=== PATIENT | male | born 1955 | race Caucasian/White ===

== ENCOUNTER 2017-10-24 08:15 | Day surgery (SDC) | payer MEDICARE, MEDICAID ==
[~2017-10-24 08:15] MED LIST: Lidocaine 0.5% 50 ML SDV ONE; Midazolam 1 MG/ML 2 ML SDV ONE; Propofol 200 MG/20 ML SDV ONE; fentaNYL 100 MCG/2 ML SDV ONE
[2017-10-24] MEDS ORDERED: Dexamethasone 4 MG/ML 5 ML MDV ONE (08:44)
[2017-10-24] MEDS ORDERED: Bupivacaine 0.5% 30 ML SDV ONE (08:44)
[2017-10-24] MEDS ORDERED: Povidone-Iodine 10% Soln 118.25 ML Bottle ONE (08:45)
[2017-10-24] MEDS ORDERED: Lactated Ringers 1,000 ML IV SCH (09:00)
[2017-10-24] MEDS ORDERED: Albuterol/Ipratropium 3.0-0.5 MG/3 ML Neb Soln NEB ONE (09:45)
[2017-10-24] MEDS ORDERED: ceFAZolin 2 GM in Premix Bag 1 BAG IV ONE (10:00)
--- NOTE | 2017-10-24 10:17 | CR ---
CHEST: 2 view CLINICAL HISTORY:COPD COMPARISON:None FINDINGS: The lungs are hyperaerated. Heart and pulmonary vascularity appear normal. There is mild g eneralized interstitial prominence. There is prominence of the perihilar bronchial markings.. There is some patchy density in the lingula which is likely a combination of some fibrosis and atelec tasis. There is moderate apical scarring bilaterally. IMPRESSION: Changes of COPD Patchy lingular density likely is accommodation some fibrosis and atelectasis
[2017-10-24] MEDS ORDERED: Triamcinolone Acetonide 40 MG/ML 1 ML MDV ONE (10:30)
[2017-10-24] MEDS ORDERED: fentaNYL 100 MCG/2 ML SDV IVPUSH ONE (11:14)
--- NOTE | 2017-10-24 17:52 | OR ---
DATE OF PROCEDURE: 10/24/2017 PREOPERATIVE DIAGNOSES: Right carpal tunnel syndrome and left lateral epicondylitis. POSTOPERATIVE DIAGNOSES: Right carpal tunnel syndrome and left lateral epicondylitis. PROCEDURE: Right carpal tunnel release and left lateral epicondyle injection. HAND SALTER: JENNIFER Mcgill. Physician medical laboratory assistant, Brittanie Cochran NP, played an essential role in assisting in this case, helping to position the patient, retract structures as needed, as well as suturing and cutting sutures as indicated. Her presence improved patient's safety and decreased operative time. ANESTHESIA: [place] block plus conscious sedation. FLUIDS: Lactated Ringer's solution. ESTIMATED BLOOD LOSS: Less than 10 mL. COMPLICATIONS: None. SPECIMEN: None. DISCHARGE DISPOSITION: Stable to PACU. HSITORY AND INDICATIONS FOR THE PROCEDURE: The patient was seen preoperatively in the clinic. He had been having numbness and tingling in his right hand. He had positive Tinel on compression. Risks and benefits of the procedure were explained to the patient. Informed consent was obtained. He was also suffering from lateral epicondylitis with point tenderness over the lateral epicondyle and pain with resisted elbow extension and wrist extension. DETAILS OF THE PROCEDURE: The patient was seen preoperatively by myself and the Anesthesia staff at the preop holding area where the operative site was marked. He was brought to the operative suite by the Anesthesia staff where right Emily block was administered. The patient was then prepped and draped in a sterile manner. Time-out was called identifying the correct patient, the correct procedure, the correct site, and antibiotics had begun within appropriate time. An incision was made just proximal to Key's cardinal line proximal to the distal border of the first metacarpal in line with the radial border of the fourth digit extending 1.5 cm proximally. Bleeding was controlled with bipolar electrocautery. I removed some subcutaneous fat using a blade and pickups. I then used a self-retaining retractor and identified the transverse carpal ligament and then divided it with the blade. I then used Metzenbaum, so went proximally and distally from this incision above and below the deep palmar fascia and then under direct visualization using Ragnell went to the deep palmar fascia. There was a small amount of bleeding encountered, which I attributed to the palmaris brevis, but I wanted to be sure, so we flashed the tourniquet, which did have a small flash of blood. I then extended the incision distally approximately 1 cm into the palm and identified that there was a superficial bleeder. He also had a large vein in this area. I then cauterized this with bipolar electrocautery. We then flashed the tourniquet again where there was no blood. We then copiously irrigated with saline and placed a few drops of Decadron in the wound and then we closed the wound with interrupted 3- 0 nylon sutures. The tourniquet was let down; the tourniquet, 20 minutes per Anesthesia. We then performed a left lateral epicondylar injection over the area of some pain that we had previously confirmed in the preop holding area. The patient then had a sterile dressing placed over the carpal tunnel release and then was taken to the PACU in stable condition. Sage Chand DO /[id number]
== END 2017-10-24 12:25 | disposition home or self-care (01) ==
LOC: JP.SDS 08:15
PROVIDERS: ATTEND Orthopaedic Surgery
DX: G56.01 Carpal tunnel syndrome, right upper limb (principal); M77.12 Lateral epicondylitis, left elbow; J44.9 Chronic obstructive pulmonary disease, unspecified; Z79.899 Other long term (current) drug therapy; F17.210 Nicotine dependence, cigarettes, uncomplicated
CPT/HCPCS: 20550; 36415; 64721; 71046; 80053; 85027; J0690; J2250; J2704; J3010; J3301; J7120; J7620; J1100

== ENCOUNTER 2020-02-14 14:22 | Emergency (ER) | payer MEDICARE, OTHER, SELFPAY ==
--- NOTE | 2020-02-14 15:32 | EDM.PDOC ---
ED HPI GENERAL MEDICAL PROBLEM - General Chief Complaint: Genitourinary Problem Stated Complaint: SURGERY WED/BAG PLUGGED Time Seen by Provider: 02/14/20 14:33 Source of Information: Reports: Patient History Limitations: Reports: No Limitations - History of Present Illness INITIAL COMMENTS - FREE TEXT/NARRATIVE: Reji is a 65 year old male, post TURP who presents to the ED today with a clogged mon catheter. Patient has been having leaking of urine, mild lower abdominal discomfort. Patient denies any fever/chills. Onset: Gradual - Related Data Allergies Allergy/AdvReac Type Severity Reaction Status Date / Time No Known Allergies Allergy Verified 02/14/20 14:53 Home Meds: Home Meds oxyCODONE 5 mg PO Q4H PRN 05/27/14 [History] traZODone HCl [Trazodone HCl] 50 mg PO BEDTIME 05/27/14 [History] Albuterol Sulfate [Proair Hfa] 2 puff INH Q4H PRN 07/25/17 [History] Ipratropium [Atrovent 0.06% Nasal [place]] 2 puff NASLF TID 07/25/17 [History] Oxybutynin Chloride [Oxybutynin Chloride ER] 1 tab PO QID PRN 02/14/20 [History] Past Medical History HEENT History: Reports: Impaired Vision Genitourinary History: Reports: Renal Disease Musculoskeletal History: Reports: Back Pain, Chronic, Other (See Below) Other Musculoskeletal History: L elbow pain, R wrist pain - Infectious Disease History Infectious Disease History: Reports: Chicken Pox, Measles, Mumps - Past Surgical History Head Surgeries/Procedures: Reports: None GI Surgical History: Reports: Colonoscopy Male Surgical History: Reports: TURBT-Transurethral Resection of Bladder Tumor Musculoskeletal Surgical History: Reports: Carpal Tunnel, Other (See Below) Other Musculoskeletal Surgeries/Procedures:: neck surgery, left foot. s/o right carpal tunnel release Dermatological Surgical History: Reports: None Social & Family History - Family History Family Medical History: Noncontributory - Tobacco Use Smoking Status *Q: Current Every Day Smoker Years of Tobacco use: 50 Packs/Tins Daily: 0.5 - Caffeine Use Caffeine Use: Reports: Coffee ED ROS GENERAL - Review of Systems Review Of Systems: Comprehensive ROS is negative, except as noted in HPI. ED EXAM, RENAL/ - Physical Exam Exam: See Below Exam Limited By: No Limitations General Appearance: Alert, WD/WN Throat/Mouth: Normal Inspection Head: Atraumatic Neck: Normal Inspection Respiratory/Chest: No Respiratory Distress Cardiovascular: Normal Peripheral Pulses, Tachycardia GI/Abdominal: Normal Bowel Sounds, Soft, Non-Tender (Male) Exam: Other (Mon catheter present) Back Exam: Normal Inspection Extremities: Normal Inspection Neurological: Alert, Oriented, CN II-XII Intact Course - Vital Signs Last Recorded V/S: Last Vital Signs Temp 36.5 C 02/14/20 15:02 Pulse 111 H 02/14/20 15:02 Resp 14 02/14/20 15:02 BP 114/70 02/14/20 15:02 Pulse Ox 94 L 02/14/20 15:02 Reji is a 65 year old male, presents to the ED today with clogged urinary catheter post TURP. Patient arrives here mildly tachycardic but otherwise hemodynamically stable. Catheter well irrigated by RN, now draining without difficulty. RN instructed on at home irrigation and patient was discharged in stable condition. Departure - Departure Time of Disposition: 16:00 Disposition: Home, Self-Care 01 Condition: Good Clinical Impression: Mon catheter problem Qualifiers: Encounter type: initial encounter Qualified Code(s): T83.9XXA - Unspecified complication of genitourinary prosthetic device, implant and graft, initial encounter - Discharge Information Instructions: Indwelling Urinary Catheter Care, Adult Referrals: Darius Perera MD [Primary Care Provider] - Sepsis Event Note (ED) - Evaluation Sepsis Screening Result: No Definite Risk - Focused Exam Vital Signs: Vital Signs Temp Pulse Resp BP Pulse Ox 02/14/20 15:02 36.5 C 111 H 14 114/70 94 L
== END 2020-02-14 16:01 | disposition home or self-care (01) ==
LOC: JP.ED 14:22
DX: T83.091A Other mechanical complication of indwelling urethral catheter, initial encounter (principal); F17.210 Nicotine dependence, cigarettes, uncomplicated; Z79.899 Other long term (current) drug therapy
CPT/HCPCS: 99282; 99283

== ENCOUNTER 2020-02-19 00:27 | Emergency (ER) | payer MEDICARE ==
--- NOTE | 2020-02-19 00:39 | EDM.PDOC ---
ED HPI GENERAL MEDICAL PROBLEM - General Chief Complaint: Chest Pain Stated Complaint: CHEST PAINS Time Seen by Provider: 02/19/20 00:32 Source of Information: Reports: Patient, EMS History Limitations: Reports: No Limitations - History of Present Illness INITIAL COMMENTS - FREE TEXT/NARRATIVE: Patient presents by ambulance describing bilateral chest pain developing tonight. He has a history of metastatic bladder cancer and just followed up in the [facility] urology clinic earlier today. His biggest concern and complaint at the moment is incredibly dry mouth. He wonders what can be done to improve this? Additionally he has a history of COPD, smoking, musculoskeletal complaints. He is on multiple medications including oxycodone for pain, cyclobenzaprine, trazodone, recently discontinued oxybutynin. At his urology appointment today, his Rizzo catheter was removed. He states that he will no longer need to take the oxybutynin because his catheter is out. Onset: Gradual Duration: Chronic Location: Reports: Chest Quality: Reports: Ache Severity: Mild Improves with: Reports: None Worsens with: Reports: Breathing, Movement Associated Symptoms: Reports: Shortness of Breath, Weakness chest pain Pain Score (Numeric/FACES): 8 - Related Data Allergies Allergy/AdvReac Type Severity Reaction Status Date / Time No Known Allergies Allergy Verified 02/19/20 00:32 Home Meds: Home Meds oxyCODONE 5 mg PO Q4H PRN 05/27/14 [History] traZODone HCl [Trazodone HCl] 50 mg PO BEDTIME 05/27/14 [History] Oxybutynin Chloride [Oxybutynin Chloride ER] 1 tab PO QID PRN 02/14/20 [History] Ondansetron [Zofran ODT] 8 mg PO ASDIRECTED 02/19/20 [History] Past Medical History HEENT History: Reports: Impaired Vision Genitourinary History: Reports: Renal Disease Musculoskeletal History: Reports: Back Pain, Chronic, Other (See Below) Other Musculoskeletal History: L elbow pain, R wrist pain - Infectious Disease History Infectious Disease History: Reports: Chicken Pox, Measles, Mumps - Past Surgical History Head Surgeries/Procedures: Reports: None GI Surgical History: Reports: Colonoscopy Male Surgical History: Reports: TURBT-Transurethral Resection of Bladder Tumor Musculoskeletal Surgical History: Reports: Carpal Tunnel, Other (See Below) Other Musculoskeletal Surgeries/Procedures:: neck surgery, left foot. s/o right carpal tunnel release Dermatological Surgical History: Reports: None Social & Family History - Family History Family Medical History: Noncontributory - Caffeine Use Caffeine Use: Reports: Coffee ED ROS GENERAL - Review of Systems Review Of Systems: See Below Constitutional: Reports: Malaise, Weakness. Denies: Diaphoresis HEENT: Reports: Other Respiratory: Reports: Shortness of Breath, Cough Cardiovascular: Reports: Chest Pain (Lower extent of ribs but he does not describe it as a pressure or heaviness.) GI/Abdominal: Reports: Decreased Appetite : Reports: No Symptoms (Open aorta right 1) Musculoskeletal: Reports: No Symptoms Psychiatric: Reports: No Symptoms ED EXAM, GENERAL - Physical Exam Exam: See Below Free Text/Narrative:: This is an adult male with multiple questions about his incredibly dry mouth on the cart in room 3. Exam Limited By: No Limitations General Appearance: No Apparent Distress Ears: Normal External Exam Throat/Mouth: Other (Very dry oral mucosa.) Respiratory/Chest: Lungs Clear Cardiovascular: Regular Rate, Rhythm, Tachycardia GI/Abdominal: Soft, Non-Tender Back Exam: Normal Inspection Psychiatric: Other Course - Vital Signs Last Recorded V/S: Last Vital Signs Temp 37.7 C 02/19/20 00:36 Pulse 101 H 02/19/20 00:36 Resp 24 H 02/19/20 00:36 BP 137/76 02/19/20 00:36 Pulse Ox 92 L 02/19/20 00:36 - Orders/Labs/Meds Orders: Active Orders 24 hr Category Date Time Status EKG Documentation Completion [RC] ASDIRECTED Care 02/19/20 00:41 Active Chest 1V Frontal [CR] Stat Exams 02/19/20 00:41 Taken Saline Lock Insert [OM.PC] Routine Oth 02/19/20 00:40 Ordered EKG 12 Lead [EK] Routine Ther 02/19/20 00:41 Ordered Labs: Laboratory Tests 02/19/20 02/19/20 Range/Units 00:34 00:34 WBC 8.7 (4.5-11.0) K/uL RBC 4.82 (4.30-5.90) M/uL Hgb 14.6 (12.0-15.0) g/dL Hct 43.7 (40.0-54.0) % MCV 91 (80-98) fL MCH 30 (27-31) pg MCHC 33 (32-36) % Plt Count 332 (150-400) K/uL Neut % (Auto) 69 H (36-66) % Lymph % (Auto) 12 L (24-44) % Fre[place] % (Auto) 18 H (2-6) % Eos % (Auto) 1 L (2-4) % Baso % (Auto) 0 (0-1) % Sodium 133 L (140-148) mmol/L Potassium 4.2 (3.6-5.2) mmol/L Chloride 97 L (100-108) mmol/L Carbon Dioxide 27 (21-32) mmol/L Anion Gap 13.2 (5.0-14.0) mmol/L BUN 11 (7-18) mg/dL Creatinine 1.0 (0.8-1.3) mg/dL Est Cr Clr Drug Dosing 71.68 mL/min Estimated GFR (MDRD) > 60 (>60) Glucose 115 H (74-106) mg/dL Calcium 8.5 (8.5-10.1) mg/dL Total Bilirubin 0.3 (0.2-1.0) mg/dL AST 33 (15-37) U/L ALT 35 (12-78) U/L Alkaline Phosphatase 112 (46-116) U/L Troponin I < 0.017 (0.000-0.056) ng/mL C-Reactive Protein 14.10 H (0.0-0.3) mg/dL Total Protein 7.6 (6.4-8.2) g/dL Albumin 2.7 L (3.4-5.0) g/dL Globulin 4.9 H (2.3-3.5) g/dL Albumin/Globulin Ratio 0.6 L (1.2-2.2) Meds: Medications Discontinued Medications Generic Name Dose Route Start Last Admin Trade Name Freq PRN Reason Stop Dose Admin Sodium Chloride 1,000 mls @ 150 mls/hr 02/19/20 00:45 02/19/20 00:52 Normal Saline IV 150 mls/hr ASDIRECTED RAFIQ Administration Sodium Chloride 10 ml 02/19/20 00:40 02/19/20 00:53 Saline Flush FLUSH 10 ml ASDIRECTED PRN Administration Keep Vein Open - Re-Assessments/Exams Free Text/Narrative Re-Assessment/Exam: 02/19/20 05:42 I returned later to review test results which are essentially unremarkable. His chest x-ray does show a right perihilar mass as well as some basal infiltrates. Given the bladder cancer diagnosis this could represent a metastatic area of the right lung however the patient is not certain. Departure - Departure Time of Disposition: 02:07 Disposition: Home, Self-Care 01 Condition: Good Clinical Impression: Dry mouth Bladder cancer Qualifiers: Bladder location: unspecified site Qualified Code(s): C67.9 - Malignant neoplasm of bladder, unspecified Instructions: Basics of Medicine Management Referrals: PCP,None [Primary Care Provider] - Forms: ED Department Discharge Additional Instructions: Stop muscle relaxer (cyclobenzaprine.) Continue other medications. Look at [employer] or other store for Biotene - this can help your mouth not be as dry. Keep appointments next week. Sepsis Event Note (ED) - Focused Exam Vital Signs: Vital Signs Temp Pulse Resp BP Pulse Ox 02/19/20 00:36 37.7 C 101 H 24 H 137/76 92 L 02/19/20 00:34 37.7 C 101 H 24 H 137/76 92 L - My Orders Last 24 Hours: My Active Orders 02/19/20 00:40 Saline Lock Insert [OM.PC] Routine 02/19/20 00:41 EKG Documentation Completion [RC] ASDIRECTED Chest 1V Frontal [CR] Stat EKG 12 Lead [EK] Routine - Assessment/Plan Last 24 Hours: My Active Orders 02/19/20 00:40 Saline Lock Insert [OM.PC] Routine 02/19/20 00:41 EKG Documentation Completion [RC] ASDIRECTED Chest 1V Frontal [CR] Stat EKG 12 Lead [EK] Routine
[2020-02-19] MEDS ORDERED: Sodium Chloride 0.9% 10 ML Syringe FLUSH PRN (00:40)
[2020-02-19] MEDS ORDERED: Sodium Chloride 0.9% 1,000 ML IV SCH (00:45)
--- NOTE | 2020-02-19 09:12 | CR ---
CHEST: Portable 02/19/2020 at 1:21 AM CLINICAL HISTORY:Dyspnea, chest pain COMPARISON:CT January 2020 FINDINGS: Heart size and pulmonary vascularity are normal. There are atherosclerotic changes in the aorta.. Lungs are hyperaerated. There is a right lower lobe infiltrate. There is bilateral apical scarring greater on the left. Impression: COPD Superimposed right lower lobe infiltrate
== END 2020-02-19 02:21 | disposition home or self-care (01) ==
LOC: JP.ED 00:27
DX: C67.9 Malignant neoplasm of bladder, unspecified (principal); R68.2 Dry mouth, unspecified; R00.0 Tachycardia, unspecified
CPT/HCPCS: 36415; 71045; 80053; 84484; 85025; 86140; 93005; 96360; 99285; J7030; 93010

== ENCOUNTER 2020-03-10 20:17 | Emergency (ER) | payer MEDICARE ==
--- NOTE | 2020-03-10 20:44 | EDM.PDOC ---
ED HPI GENERAL MEDICAL PROBLEM - General Chief Complaint: Eye Problems Stated Complaint: SOMETHING IN LT EYE Time Seen by Provider: 03/10/20 20:42 Source of Information: Reports: Patient History Limitations: Reports: No Limitations - History of Present Illness Onset: Today, Sudden Duration: Getting Worse Quality: Reports: Sharp Severity: Severe Worsens with: Reports: Other (bright light) Right Eye Pain Score (Numeric/FACES): 10 - Related Data Allergies Allergy/AdvReac Type Severity Reaction Status Date / Time No Known Allergies Allergy Verified 02/19/20 00:32 Home Meds: Home Meds oxyCODONE 10 mg PO Q4H PRN 05/27/14 [History] traZODone HCl [Trazodone HCl] 50 mg PO BEDTIME 05/27/14 [History] Ondansetron [Zofran ODT] 8 mg PO ASDIRECTED 02/19/20 [History] Cyclobenzaprine [Flexeril] 10 mg PO TID 03/10/20 [History] Pantoprazole [ProTONIX] 40 mg PO DAILY 03/11/20 [History] Prochlorperazine Maleate [Compazine] 10 mg PO Q6HR PRN 03/11/20 [History] Past Medical History HEENT History: Reports: Impaired Vision Genitourinary History: Reports: Renal Disease Musculoskeletal History: Reports: Back Pain, Chronic, Other (See Below) Other Musculoskeletal History: L elbow pain, R wrist pain Oncologic (Cancer) History: Reports: Bladder - Infectious Disease History Infectious Disease History: Reports: Chicken Pox, Measles, Mumps - Past Surgical History Head Surgeries/Procedures: Reports: None GI Surgical History: Reports: Colonoscopy Male Surgical History: Reports: TURBT-Transurethral Resection of Bladder Tumor Musculoskeletal Surgical History: Reports: Carpal Tunnel, Other (See Below) Other Musculoskeletal Surgeries/Procedures:: neck surgery, left foot. s/o right carpal tunnel release Dermatological Surgical History: Reports: None Social & Family History - Family History Family Medical History: Noncontributory - Caffeine Use Caffeine Use: Reports: Coffee ED ROS GENERAL - Review of Systems Review Of Systems: See Below HEENT: Reports: Eye Pain ED EXAM GENERAL W FULL EYE - Physical Exam Exam: See Below Exam Limited By: No Limitations General Appearance: Alert, Mild Distress Eye Exam: Left Eye: Conjunctival Injection, Corneal Abrasion, Bilateral Eye: Normal Fundi, PERRL Cornea Exam: Bilateral: Examined with Flourescein Extraocular Movements: Bilateral: Intact Anterior Chamber: Bilateral: Normal Appearance Ears: Normal External Exam Nose: Normal Inspection Throat/Mouth: Normal Inspection, Normal Lips, Normal Teeth Neck: Normal Inspection, Supple, Non-Tender Respiratory/Chest: No Respiratory Distress Skin Exam: Warm, Dry, Intact Lymphatic: No Adenopathy Course - Vital Signs Last Recorded V/S: Last Vital Signs Temp 37.0 C 03/10/20 21:04 Pulse 101 H 03/10/20 21:04 Resp 16 03/10/20 21:04 BP 123/81 03/10/20 21:04 Pulse Ox 98 03/10/20 21:04 - Orders/Labs/Meds Meds: Medications Discontinued Medications Generic Name Dose Route Start Last Admin Trade Name Katlyn PRN Reason Stop Dose Admin Proparacaine HCl 1 ml 03/10/20 21:01 03/10/20 21:07 Proparacaine 0.5% Ophth Soln EYEBOTH 03/10/20 21:02 4 drp ONETIME ONE Administration Departure - Departure Time of Disposition: 21:17 Disposition: Home, Self-Care 01 Condition: Good Clinical Impression: Corneal abrasion - Discharge Information Instructions: Corneal Abrasion Referrals: Darius Perera MD [Primary Care Provider] - Forms: ED Department Discharge Additional Instructions: Where dark wraparound sunglasses to protect your eyes from wind and some light. Use the erythromycin ointment 4 times a day. Prescription has been provided to you. Gets her eye rechecked in 2 days' time to make sure the abrasion is healing
[2020-03-10] MEDS ORDERED: Proparacaine 0.5% Ophth Soln 15 ML Bottle EYEBOTH ONE (21:01)
== END 2020-03-10 21:20 | disposition home or self-care (01) ==
LOC: JP.ED 20:17
DX: S05.02XA Injury of conjunctiva and corneal abrasion without foreign body, left eye, initial encounter (principal); Z79.899 Other long term (current) drug therapy; X58.XXXA Exposure to other specified factors, initial encounter
CPT/HCPCS: 99283; A9270-GY

== ENCOUNTER 2020-03-12 05:31 | Day surgery (SDC) | payer MEDICARE ==
[2020-03-12] MEDS ORDERED: ceFAZolin 2 GM in Premix Bag 1 BAG IV ONE (06:29)
[2020-03-12] MEDS ORDERED: Dextrose 5%-Lactated Ringers 1,000 ML IV SCH (06:30)
[2020-03-12] MEDS ORDERED: Bupivacaine 0.5% 50 ML MDV ONE (06:46)
[2020-03-12] MEDS ORDERED: Lidocaine 1% with EPINEPHrine 1:100,000 50 ML MDV ONE (06:47)
[2020-03-12] MEDS ORDERED: fentaNYL 100 MCG/2 ML SDV ONE (07:12)
[2020-03-12] MEDS ORDERED: Midazolam 1 MG/ML 2 ML SDV ONE (07:12)
[2020-03-12] MEDS ORDERED: Propofol 200 MG/20 ML SDV ONE ×2 (07:12→07:13)
--- NOTE | 2020-03-17 12:51 | OR ---
DATE OF PROCEDURE: 03/12/2020 SURGEON: Janak Chand MD PREOPERATIVE DIAGNOSES: 1. Epigastric discomfort. 2. Indication for central venous access for chemotherapy. POSTOPERATIVE DIAGNOSES: 1. Epigastric discomfort associated with mild proximal duodenitis. 2. Indication for central venous access for chemotherapy. OPERATIVE PROCEDURES: 1. Esophagogastroduodenoscopy with antral biopsies for CLOtest ([id number]). 2. Placement of Bard PowerPort via left subclavian vein approach ([id number]). ANESTHESIA: Local plus IV sedation. INDICATIONS FOR PROCEDURE: This is a 65-year-old male with advanced urothelial carcinoma, presenting with some ongoing epigastric discomfort. Most of the abdominal pain is actually in the lower abdomen, but to clear the upper GI area of significant pathology, an upper endoscopy has been requested. We will also plan to proceed with a Bard port placement for chemotherapy. Potential risks of the procedure including bleeding and perforation, possibility of the port becoming infected or occluded and problems with the port placement such as pulmonary or vascular injury were reviewed, and the patient wishes to proceed. DETAILS OF PROCEDURE: The patient was taken to the operating room and placed in a left lateral decubitus position. IV sedation was administered, after which the upper GI endoscope was passed orally through the length of the esophagus into the stomach with retroflexion view of the fundus, thereafter through the pyloric channel and into the junction of the 3rd and 4th portions of the duodenum. Findings included normal hypopharynx, larynx, upper esophageal sphincter, and esophageal body. Upon entering the EG junction, no significant hiatal hernia was noted. Within the remainder of the stomach, no significant pathology was identified. Within the proximal duodenum, there was some patchy duodenitis, but no erosions or ulcers. Beyond the duodenal bulb, findings were normal. At this point, biopsy was obtained from the antrum and sent for CLOtest for H pylori. Minimal bleeding from the biopsy sites was seen and the procedure was then concluded. The patient was now placed in a supine position. Upper chest and neck areas were prepped and draped. Left subclavian area was anesthetized with 1% lidocaine. Left subclavian vein cannulated. A guidewire was passed and some additional local was then injected in the area around the region just below the left clavicle. A transverse incision was made and carried down through the skin and subcutaneous tissue and through the pectoralis major fascia. Below that plane, a pouch was formed bluntly and Bard port was then assembled, flushed with heparinized saline and placed within the port. The catheter was cut such that the tip would lie in the area of the superior vena cava and right atrial junction. Over the introducer, peel-away catheter were placed without difficulty. Good in and out flow through the port was noted. Port was flushed with heparinized saline. Incision was closed with 3-0 and 4-0 Vicryl stitch deep and 4-0 Vicryl subcuticular stitch. Dressing was applied. The patient was taken to the recovery room in satisfactory condition. With regard to his duodenitis, at this point, we will have the patient stay on the Protonix that he is on. If CLOtest is positive, we will contact him regarding antibiotic course for the treatment of that issue. Janak Chand MD /[id number]
== END 2020-03-12 09:59 | disposition home or self-care (01) ==
LOC: JP.SDS 05:31
PROVIDERS: ATTEND Surgery
DX: C67.9 Malignant neoplasm of bladder, unspecified (principal); K29.80 Duodenitis without bleeding; J44.9 Chronic obstructive pulmonary disease, unspecified; F17.200 Nicotine dependence, unspecified, uncomplicated
CPT/HCPCS: 36561; 43239; 77001; 87081; C1788; J0690; J1642; J2250; J2704; J3010; J3490; J7121

== ENCOUNTER 2020-05-11 10:54 | Inpatient (IN) | payer MEDICARE, OTHER ==
[2020-05-11] MEDS ORDERED: Sodium Chloride 0.9% 1,000 ML IV SCH ×2 (12:00→21:45)
--- NOTE | 2020-05-11 12:00 | EDM.PDOC ---
ED HPI GENERAL MEDICAL PROBLEM - General Chief Complaint: Respiratory Problem Stated Complaint: SOB and productive cough Time Seen by Provider: 05/11/20 11:45 Source of Information: Reports: Patient, Old Records, Provider, RN History Limitations: Reports: No Limitations - History of Present Illness INITIAL COMMENTS - FREE TEXT/NARRATIVE: 65 yo male smoker was referred to the ED by his oncologist who was seeing him today for follow up on his stage 4 bladder CA. He was recently placed on Cipro for his respiratory sx's and has since gotten worse. He does not think he is running a fever, but does feel cold all the time and his breathing issues are worsening. 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: Other (see below) (Cipro) Lower Back Pain Score (Numeric/FACES): 8 - Related Data Allergies Allergy/AdvReac Type Severity Reaction Status Date / Time No Known Allergies Allergy Verified 05/11/20 11:16 Home Meds: Home Meds oxyCODONE 10 mg PO Q4H PRN 05/27/14 [History] traZODone HCl [Trazodone HCl] 50 mg PO BEDTIME 05/27/14 [History] Ondansetron [Zofran ODT] 8 mg PO ASDIRECTED 02/19/20 [History] Cyclobenzaprine [Flexeril] 10 mg PO TID 03/10/20 [History] Pantoprazole [ProTONIX] 40 mg PO DAILY 03/11/20 [History] Prochlorperazine Maleate [Compazine] 10 mg PO Q6HR PRN 03/11/20 [History] Albuterol Sulfate [Albuterol Sulfate Hfa] 8.5 gm IH Q4HR PRN 05/11/20 [History] Ciprofloxacin [Ciprofloxacin HCl] 500 mg PO BID 05/11/20 [History] Tamsulosin HCl 0.4 mg PO DAILY 05/11/20 [History] dexAMETHasone [Dexamethasone] 8 mg PO ASDIRECTED 05/11/20 [History] Past Medical History HEENT History: Reports: Cataract, Impaired Vision, Other (See Below) Other HEENT History: contact lense in left eye currently to help heal eye; left eye poked with stick 2 days ago Cardiovascular History: Reports: None Respiratory History: Reports: COPD Gastrointestinal History: Reports: None Genitourinary History: Reports: Other (See Below) Other Genitourinary History: metastatic urothelial carcinoma. malignant neoplasm of overlapping sites of bladder Musculoskeletal History: Reports: Back Pain, Chronic, Other (See Below) Other Musculoskeletal History: L elbow pain, R wrist pain Neurological History: Reports: None Oncologic (Cancer) History: Reports: Bladder - Infectious Disease History Infectious Disease History: Reports: Chicken Pox, Measles, Mumps, Other (See Below) Other Infectious Disease History: polio - Past Surgical History Head Surgeries/Procedures: Reports: None HEENT Surgical History: Reports: Cataract Surgery GI Surgical History: Reports: Colonoscopy Neurological Surgical History: Reports: C-Spine Musculoskeletal Surgical History: Reports: Carpal Tunnel, Other (See Below) Other Musculoskeletal Surgeries/Procedures:: neck surgery, left foot. s/o right carpal tunnel release Dermatological Surgical History: Reports: None Social & Family History - Family History Family Medical History: Noncontributory - Tobacco Use Smoking Status *Q: Current Every Day Smoker Years of Tobacco use: 48 Packs/Tins Daily: 1 - Caffeine Use Caffeine Use: Reports: None - Recreational Drug Use Recreational Drug Use: No ED ROS GENERAL - Review of Systems Review Of Systems: See Below Constitutional: Reports: Chills, Malaise. Denies: Fever HEENT: Reports: No Symptoms Respiratory: Reports: Shortness of Breath, Cough, Sputum. Denies: Wheezing, Pleuritic Chest Pain, Hemoptysis Cardiovascular: Reports: No Symptoms Endocrine: Reports: No Symptoms GI/Abdominal: Reports: No Symptoms : Reports: No Symptoms Musculoskeletal: Reports: No Symptoms Skin: Reports: No Symptoms Neurological: Reports: No Symptoms ED EXAM, GENERAL - Physical Exam Exam: See Below Exam Limited By: No Limitations General Appearance: Alert, WD/WN, No Apparent Distress, Thin Eye Exam: Bilateral Eye: Normal Inspection Ears: Normal External Exam, Normal Canal, Hearing Grossly Normal, Normal TMs Ear Exam: Bilateral Ear: Auricle Normal, Canal Normal, TM normal Nose: Normal Inspection, No Blood Throat/Mouth: Normal Inspection, Normal Lips, Normal Oropharynx, Normal Voice, No Airway Compromise Head: Atraumatic, Normocephalic Neck: Normal Inspection Respiratory/Chest: No Respiratory Distress, No Accessory Muscle Use, Rhonchi (R base). No: Lungs Clear, Normal Breath Sounds Cardiovascular: Regular Rate, Rhythm, No Edema GI/Abdominal: Normal Bowel Sounds, Soft, Non-Tender, No Distention Back Exam: Normal Inspection. No: CVA Tenderness (R), CVA Tenderness (L) Extremities: Normal Inspection, Normal Range of Motion, Non-Tender, No Pedal Edema Neurological: Alert, Oriented, CN II-XII Intact, Normal Cognition, No Motor/Sensory Deficits Psychiatric: Normal Affect, Normal Mood Skin Exam: Warm, Dry, Intact, Normal Color, No Rash Course - Vital Signs Text/Narrative:: Dr. Melara called @ 1210h Last Recorded V/S: Last Vital Signs Temp 36.6 C 05/11/20 11:15 Pulse 100 05/11/20 11:15 Resp 20 05/11/20 11:15 BP 103/63 05/11/20 11:15 Pulse Ox 94 L 05/11/20 11:15 - Orders/Labs/Meds Orders: Active Orders 24 hr Category Date Time Status Chest 2V [CR] Stat Exams 05/11/20 10:57 Taken CULTURE BLOOD [BC] Stat Lab 05/11/20 11:11 Received CULTURE BLOOD [BC] Stat Lab 05/11/20 12:00 Ordered CULTURE RESPIRATORY + SMEAR [RM] Stat Lab 05/11/20 11:52 Ordered UA W/MICROSCOPIC [URIN] Stat Lab 05/11/20 12:00 Ordered Sodium Chloride 0.9% [Normal Saline] 1,000 ml Med 05/11/20 12:00 Active IV ASDIRECTED Medication Orders Sodium Chloride (Normal Saline) 1,000 mls @ 150 mls/hr IV ASDIRECTED RAFIQ Labs: Laboratory Tests 05/11/20 05/11/20 Range/Units 11:11 11:11 WBC 16.0 H (4.5-11.0) K/uL RBC 4.20 L (4.30-5.90) M/uL Hgb 11.4 L D (12.0-15.0) g/dL Hct 34.3 L (40.0-54.0) % MCV 82 (80-98) fL MCH 27 (27-31) pg MCHC 33 (32-36) % Plt Count 121 L (150-400) K/uL Neut % (Auto) 84 H (36-66) % Lymph % (Auto) 8 L (24-44) % [place] % (Auto) 7 H (2-6) % Eos % (Auto) 0 L (2-4) % Baso % (Auto) 0 (0-1) % Sodium 133 L (140-148) mmol/L Potassium 4.6 (3.6-5.2) mmol/L Chloride 97 L (100-108) mmol/L Carbon Dioxide 25 (21-32) mmol/L Anion Gap 15.6 H (5.0-14.0) mmol/L BUN 23 H D (7-18) mg/dL Creatinine 1.2 (0.8-1.3) mg/dL Est Cr Clr Drug Dosing 56.72 mL/min Estimated GFR (MDRD) > 60 (>60) Glucose 104 (74-106) mg/dL Calcium 8.6 (8.5-10.1) mg/dL Meds: Medications Generic Name Dose Route Start Last Admin Trade Name Freq PRN Reason Stop Dose Admin Sodium Chloride 1,000 mls @ 150 mls/hr 05/11/20 12:00 Normal Saline IV ASDIRECTED RAFIQ - Radiology Interpretation Free Text/Narrative:: CXR-RLL pneumonia Departure - Departure Time of Disposition: 12:50 Disposition: Refer to Observation Condition: Fair Clinical Impression: Mild dehydration Right lower lobe pneumonia Qualifiers: Pneumonia type: due to unspecified organism Qualified Code(s): J18.9 - Pneumonia, unspecified organism - Discharge Information *PRESCRIPTION DRUG MONITORING PROGRAM REVIEWED*: Not Applicable *COPY OF PRESCRIPTION DRUG MONITORING REPORT IN PATIENT KAILEE: Not Applicable Referrals: Darius Perera MD [Primary Care Provider] - Forms: ED Department Discharge Sepsis Event Note (ED) - Evaluation Sepsis Screening Result: No Definite Risk - Focused Exam Vital Signs: Vital Signs Temp Pulse Resp BP Pulse Ox 05/11/20 11:15 36.6 C 100 20 103/63 94 L 05/11/20 11:06 36.6 C 100 20 103/63 94 L - My Orders Last 24 Hours: My Active Orders 05/11/20 10:57 Chest 2V [CR] Stat 05/11/20 11:11 CULTURE BLOOD [BC] Stat 05/11/20 11:52 CULTURE RESPIRATORY + SMEAR [RM] Stat 05/11/20 12:00 CULTURE BLOOD [BC] Stat UA W/MICROSCOPIC [URIN] Stat Sodium Chloride 0.9% [Normal Saline] 1,000 ml IV ASDIRECTED - Assessment/Plan Last 24 Hours: My Active Orders 05/11/20 10:57 Chest 2V [CR] Stat 05/11/20 11:11 CULTURE BLOOD [BC] Stat 05/11/20 11:52 CULTURE RESPIRATORY + SMEAR [RM] Stat 05/11/20 12:00 CULTURE BLOOD [BC] Stat UA W/MICROSCOPIC [URIN] Stat Sodium Chloride 0.9% [Normal Saline] 1,000 ml IV ASDIRECTED
--- NOTE | 2020-05-11 12:04 | CR ---
CHEST: 2 view CLINICAL HISTORY:Productive cough COMPARISON:February 2020 FINDINGS: Heart size and pulmonary vascularity are normal. Patient has a left subclavian Iwrfxz-l-Ijyi catheter. The tip is in the brachycephalic superior vena caval junction region. There is underlying changes of COPD and pulmonary fibrosis. There is superimposed pneumonic infiltrate in both lower lobes, right greater than left. IMPRESSION: Bilateral pneumonia right greater than left. This is superimposed over underlying chronic lung disease and pulmonary fibrosis
[2020-05-11] MEDS ORDERED: cefTRIAXone 1 GM in Sodium Chloride 0.9% 50 ML IV ONE (12:11)
[2020-05-11] MEDS ORDERED: oxyCODONE 5 MG Tab PO ONE (12:16)
[2020-05-11] MEDS ORDERED: Nicotine 21 MG/24 Hr Patch TRDERM ONE (12:27)
[2020-05-11] MEDS ORDERED: Doxycycline 100 MG in Sodium Chloride 0.9% 100 ML IV ONE ×2 (13:20→13:30)
--- NOTE | 2020-05-11 13:31 | PCM.HP.2 ---
H&P History of Present Illness - General Date of Service: 05/11/20 Admit Problem/Dx: Admission Diagnosis/Problem Admission Diagnosis/Problem Right lower lobe pneumonia Source of Information: Patient, Provider History Limitations: Reports: No Limitations - History of Present Illness Initial Comments - Free Text/Narative: CC: It's hard to breath HPI: Reji presented to the emergency room from the infusion center. He was seen there for routine follow-up and mentioned that he has had progression in his cough and shortness of breath over the past week. He was seen there 1 week ago and mentioned a cough and shortness of breath. He was started on ciprofloxacin and has been taking it as prescribed but continues to get worse. He is now short of breath with more than minimal activity. Cough has become productive with some clear and some green sputum. He has had subjective chills at home but has not measured any fevers. He had one episode of chest discomfort a couple of days ago but none since. His appetite and energy have decreased significantly. He has not had anything to eat since yesterday evening. Oral intake of fluids has been poor. He has been sleeping 12 hours at night and taking naps during the day as well. No significant nausea or vomiting. No change in bowel or bladder habits. No obvious sick contacts. No loss of taste or smell. His last chemotherapy was 1 week ago. Work-up in the emergency room revealed leukocytosis and a right lower lobe pneumonia. Patient will be admitted for IV antibiotics after failing outpatient antibiotic therapy. Lower Back Pain Score (Numeric/FACES): 8 - Related Data Allergies/Adverse Reactions: Allergies Allergy/AdvReac Type Severity Reaction Status Date / Time No Known Allergies Allergy Verified 05/11/20 14:34 Home Medications: Home Meds oxyCODONE 10 mg PO Q4H PRN 05/27/14 [History] traZODone HCl [Trazodone HCl] 50 mg PO BEDTIME 05/27/14 [History] Ondansetron [Zofran ODT] 8 mg PO ASDIRECTED 02/19/20 [History] Cyclobenzaprine [Flexeril] 10 mg PO TID 03/10/20 [History] Pantoprazole [ProTONIX] 40 mg PO DAILY 03/11/20 [History] Prochlorperazine Maleate [Compazine] 10 mg PO Q6HR PRN 03/11/20 [History] Albuterol Sulfate [Albuterol Sulfate Hfa] 8.5 gm IH Q4HR PRN 05/11/20 [History] Ciprofloxacin [Ciprofloxacin HCl] 500 mg PO BID 05/11/20 [History] Tamsulosin HCl 0.4 mg PO DAILY 05/11/20 [History] dexAMETHasone [Dexamethasone] 8 mg PO ASDIRECTED 05/11/20 [History] Past Medical History HEENT History: Reports: Cataract, Impaired Vision, Other (See Below) Other HEENT History: contact lense in left eye currently to help heal eye; left eye poked with stick 2 days ago Cardiovascular History: Reports: None Respiratory History: Reports: COPD Gastrointestinal History: Reports: None Genitourinary History: Reports: Other (See Below) Other Genitourinary History: metastatic urothelial carcinoma. malignant neoplasm of overlapping sites of bladder Musculoskeletal History: Reports: Back Pain, Chronic, Other (See Below) Other Musculoskeletal History: L elbow pain, R wrist pain Neurological History: Reports: None Oncologic (Cancer) History: Reports: Bladder - Infectious Disease History Infectious Disease History: Reports: Chicken Pox, Measles, Mumps, Other (See Below) Other Infectious Disease History: polio - Past Surgical History Head Surgeries/Procedures: Reports: None HEENT Surgical History: Reports: Cataract Surgery GI Surgical History: Reports: Colonoscopy Neurological Surgical History: Reports: C-Spine Musculoskeletal Surgical History: Reports: Carpal Tunnel, Other (See Below) Other Musculoskeletal Surgeries/Procedures:: neck surgery, left foot. s/o right carpal tunnel release Dermatological Surgical History: Reports: None Social & Family History - Family History Family Medical History: Noncontributory - Tobacco Use Smoking Status *Q: Current Every Day Smoker Years of Tobacco use: 48 Packs/Tins Daily: 1 - Caffeine Use Caffeine Use: Reports: None - Alcohol Use Alcohol Use History: No - Recreational Drug Use Recreational Drug Use: No H&P Review of Systems - Review of Systems: Review Of Systems: See Below Free Text/Narrative: A complete 12 point review of systems was obtained. Pertinent positives and negatives are noted in the history of present illness. All other systems were reviewed and were negative except as noted. Exam - Exam Exam: See Below - Vital Signs Vital Signs: Last Vital Signs Temp 36.6 C 05/11/20 11:15 Pulse 100 05/11/20 11:15 Resp 20 05/11/20 11:15 BP 103/63 05/11/20 11:15 Pulse Ox 94 L 05/11/20 11:15 Weight: 67.132 kg - Exam Quality Assessment: No: Supplemental Oxygen General: Alert, Oriented, Cooperative, Mild Distress HEENT: Conjunctiva Clear. No: Mucosa Moist & [place] (dry), Scleral Icterus Neck: Supple, Trachea Midline Lungs: Normal Respiratory Effort, Crackles (right mid and lower lung ). No: Wheezing Cardiovascular: Regular Rate, Regular Rhythm GI/Abdominal Exam: Normal Bowel Sounds, Soft, Non-Tender, No Distention Extremities: No Pedal Edema. No: Increased Warmth Skin: Warm, Dry Neuro Extensive - Mental Status: Alert, Oriented x3, Nl Response to Commands Neuro Extensive - Motor, Sensory, Reflexes: No: Dysarthria, Abnormal Motor, Tremor Psychiatric: Alert, Normal Affect - Patient Data Lab Results Last 24 hrs: Laboratory Results - last 24 hr 05/11/20 05/11/20 Range/Units 11:11 11:11 WBC 16.0 H (4.5-11.0) K/uL RBC 4.20 L (4.30-5.90) M/uL Hgb 11.4 L D (12.0-15.0) g/dL Hct 34.3 L (40.0-54.0) % MCV 82 (80-98) fL MCH 27 (27-31) pg MCHC 33 (32-36) % Plt Count 121 L (150-400) K/uL Neut % (Auto) 84 H (36-66) % Lymph % (Auto) 8 L (24-44) % [place] % (Auto) 7 H (2-6) % Eos % (Auto) 0 L (2-4) % Baso % (Auto) 0 (0-1) % Sodium 133 L (140-148) mmol/L Potassium 4.6 (3.6-5.2) mmol/L Chloride 97 L (100-108) mmol/L Carbon Dioxide 25 (21-32) mmol/L Anion Gap 15.6 H (5.0-14.0) mmol/L BUN 23 H D (7-18) mg/dL Creatinine 1.2 (0.8-1.3) mg/dL Est Cr Clr Drug Dosing 56.72 mL/min Estimated GFR (MDRD) > 60 (>60) Glucose 104 (74-106) mg/dL Calcium 8.6 (8.5-10.1) mg/dL Result Diagrams: 05/11/20 11:11 05/11/20 11:11 Deuce Results Last 24 hrs: Microbiology 05/11/20 11:52 Gram Stain - Final Sputum - Expectorated Imaging Impressions Last 24 hrs: CXR-images personally reviewed-there is a moderate infiltrate in the right lower lung. No obvious mass or effusion. heart size is normal. Sepsis Event Note - Evaluation Sepsis Screening Result: No Definite Risk - Focused Exam Vital Signs: Vital Signs Temp Pulse Resp BP Pulse Ox 05/11/20 11:15 36.6 C 100 20 103/63 94 L 05/11/20 11:06 36.6 C 100 20 103/63 94 L *Q Meaningful Use (ADM) - VTE Risk Assess *Q Each Risk Factor Represents 1 Point: Serious lung disease including pneumonia Total Score 1 Point Risk Factors: 1 Each Risk Factor Represents 2 Points: Age 60 - 74 Years, Malignancy (present or previous) Total Score 2 Point Risk Factors: 4 Each Risk Factor Represents 3 Points: None Total Score 3 Point Risk Factors: 0 Each Risk Factor Represents 5 Points: None Total Score 5 Point Risk Factors: 0 Venous Thromboembolism Risk Factor Score *Q: 5 - Problem List (1) Right lower lobe pneumonia SNOMED Code(s): 518036531 ICD Code: J18.9 - PNEUMONIA, UNSPECIFIED ORGANISM Status: Acute Current Visit: Yes Qualifiers: Pneumonia type: due to unspecified organism Qualified Code(s): J18.9 - Pneumonia, unspecified organism (2) COPD (chronic obstructive pulmonary disease) SNOMED Code(s): 44985165 ICD Code: J44.9 - CHRONIC OBSTRUCTIVE PULMONARY DISEASE, UNSPECIFIED Status: Chronic Current Visit: Yes Qualifiers: COPD type: unspecified COPD Qualified Code(s): J44.9 - Chronic obstructive pulmonary disease, unspecified (3) Bladder cancer SNOMED Code(s): 950580046 ICD Code: C67.9 - MALIGNANT NEOPLASM OF BLADDER, UNSPECIFIED Status: Ch ronic Current Visit: No Qualifiers: Bladder location: unspecified site Qualified Code(s): C67.9 - Malignant neoplasm of bladder, unspecified Problem List Initiated/Reviewed/Updated: Yes Orders Last 24hrs: Active Orders 24 hr Category Date Time Status Patient Status Manage Transfer [TRANSFER] Routine ADT 05/11/20 13:21 Ordered CORONAVIRUS COVID-19 GABBY [MOLEC] Routine Lab 05/11/20 12:45 Ordered CULTURE BLOOD [BC] Stat Lab 05/11/20 11:11 Received CULTURE BLOOD [BC] Stat Lab 05/11/20 12:18 Received CULTURE RESPIRATORY + SMEAR [RM] Stat Lab 05/11/20 11:52 Results UA W/MICROSCOPIC [URIN] Stat Lab 05/11/20 12:00 Ordered Doxycycline [Vibramycin] 100 mg Med 05/11/20 13:20 Active Sodium Chloride 0.9% [Normal Saline] 100 ml IV ONETIME Sodium Chloride 0.9% [Normal Saline] 1,000 ml Med 05/11/20 12:00 Active IV ASDIRECTED Resuscitation Status Routine Resus Stat 05/11/20 13:24 Ordered Medication Orders Sodium Chloride (Normal Saline) 1,000 mls @ 150 mls/hr IV ASDIRECTED RAFIQ Last Admin: 05/11/20 12:20 Dose: 150 mls/hr Documented by: PREILOR Doxycycline Hyclate 100 mg/ (Sodium Chloride) 100 mls @ 100 mls/hr IV ONETIME ONE Stop: 05/11/20 14:19 Assessment/Plan Comment:: ASSESSMENT AND PLAN - Right lower lobe pneumonia-failing outpatient antibiotic therapy and getting worse despite oral antibiotics. He is not hypoxic or septic at this time but clinically is declining. He has leukocytosis. Respiratory culture was obtained in the emergency room and Gram stain showed some gram-positive cocci. COVID testing is negative. -Antibiotic coverage with ceftriaxone and doxycycline -Follow-up cultures -Supplement oxygen if needed -Symptomatic management of cough and fever if present Bladder cancer-followed by the infusion center. Last chemotherapy was 1 week a go. -Outpatient follow-up Mild COPD-no evidence for exacerbation at this time. -Nebulizers Tobacco dependence-encourage cessation Maintenance issues - - DVT prophylaxis -SCDs - GI prophylaxis -not indicated - Nutrition -regular - Rizzo catheter -not indicated CODE STATUS -full code Admission justification -this patient will be admitted for inpatient services and is medically appropriate meeting medical necessity for inpatient admission as outlined in my documentation. I reasonably expect the patient will require inpatient services that span a period time over 2 midnights. I reasonably expect this patient to be discharged or transferred within 96 hours after admission to the [facility]. Oncology patient that has failed outpatient management for pneumonia. Disposition -I would anticipate discharge home after the hospital stay Primary care physician -Dr. Trever Melara M.D. - Mortality Measure Prognosis:: Good
[2020-05-11] MEDS ORDERED: Melatonin 3 MG Tab PO PRN (14:29)
[2020-05-11] MEDS ORDERED: Benzonatate 100 MG Cap PO PRN (14:29)
[2020-05-11] MEDS ORDERED: Ondansetron 4 MG/2 ML SDV IV PRN (14:29)
[2020-05-11] MEDS ORDERED: guaiFENesin/Dextromethorphan 100-10 MG/5 ML Soln 10 ML Cup PO PRN (14:29)
[2020-05-11] MEDS ORDERED: Ondansetron 4 MG Tab.DIS PO PRN (14:29)
[2020-05-11] MEDS ORDERED: Albuterol 0.083% 2.5 MG/3 ML Neb Soln NEB PRN (14:29)
[2020-05-11] MEDS ORDERED: Magnesium Hydroxide 400 MG/5 ML Susp 30 ML Cup PO PRN (14:29)
[2020-05-11] MEDS: Albuterol/Ipratropium 3.0-0.5 MG/3 ML Neb Soln NEB SCH ×2 (15:02→20:16)
[2020-05-11] MEDS ORDERED: Tamsulosin 0.4 MG Cap.ER PO ONE (17:30)
[2020-05-11] MEDS: Acetaminophen 325 MG Tab PO PRN (19:27)
[2020-05-11] MEDS: traZODone 50 MG Tab PO SCH (20:11)
[2020-05-11] MEDS: Sodium Chloride 0.9% 1,000 ML IV SCH (20:11)
[2020-05-11] MEDS: Lactobacillus Rhamnosus GG (Probiotic) Cap PO SCH (20:11)
[2020-05-11] MEDS: oxyCODONE 5 MG Tab PO PRN (20:16)
[2020-05-11] MEDS: Cyclobenzaprine 10 MG Tab PO PRN (20:17)
[2020-05-11] MEDS ORDERED: Ketorolac 30 MG/ML SDV IVPUSH ONE (21:38)
[2020-05-11] MEDS: Ibuprofen 800 MG Tab PO PRN (21:38)
--- NOTE | 2020-05-11 21:47 | PCM.SN.2 ---
- Free Text/Narrative Note: Call from [address] [place] [address] O: fevers this evening of 38.4 and 38.8, given Tylenol and Motrin hr 100's rr 18 B/P 106/50 O2 wsat 94% A: febrile, blood cultures pending, current Antibiotic IV Rocephin and IV Doxy P: Toradol 30 mg IV one time IV Normal Saline one liter over 2 hours recheck vital signs after fluids bolus is compete. continue present plan of care
[2020-05-12] MEDS: Doxycycline 100 MG in Sodium Chloride 0.9% 100 ML IV SCH ×2 (03:05→13:40)
[2020-05-12] MEDS: Albuterol/Ipratropium 3.0-0.5 MG/3 ML Neb Soln NEB SCH ×4 (07:17→20:31)
[2020-05-12] MEDS: Pantoprazole 40 MG Tab.CR PO SCH (07:41)
[2020-05-12] MEDS: Sodium Chloride 0.9% 1,000 ML IV SCH ×2 (07:43→23:23)
[2020-05-12] MEDS: Tamsulosin 0.4 MG Cap.ER PO SCH (09:08)
[2020-05-12] MEDS: Lactobacillus Rhamnosus GG (Probiotic) Cap PO SCH ×2 (09:08→20:34)
[2020-05-12] MEDS: Nicotine 21 MG/24 Hr Patch TRDERM SCH (09:09)
[2020-05-12] MEDS: oxyCODONE 5 MG Tab PO PRN ×3 (10:35→21:23)
[2020-05-12] MEDS: cefTRIAXone 1 GM in Sodium Chloride 0.9% 50 ML IV SCH (11:45)
--- NOTE | 2020-05-12 13:27 | PCM.PN ---
- General Info Date of Service: 05/12/20 Subjective Update: Patient had a fever overnight with associated drop in blood pressure and increase in heart rate. This responded well to a fluid bolus. Feeling much better today. Appetite and energy are both better. He has not required supplemental oxygen. Strength is a little better. Did not sleep well last night but otherwise is doing okay. He did have a fever early in the afternoon today. White count is slightly better. Functional Status: Reports: Pain Controlled, Tolerating Diet - Review of Systems General: Reports: Fever, Weakness Pulmonary: Reports: Shortness of Breath, Cough, Sputum - Patient Data Vitals - Most Recent: Last Vital Signs Temp 35.8 C L 05/12/20 13:06 Pulse 99 05/12/20 13:06 Resp 18 05/12/20 13:06 BP 97/53 L 05/12/20 13:06 Pulse Ox 92 L 05/12/20 13:06 Weight - Most Recent: 67.132 kg I&O - Last 24 Hours: Intake & Output 05/11/20 05/12/20 05/12/20 22:59 06:59 14:59 Intake Total 2935 1107 827 Output Total 300 550 700 Balance 2635 557 127 Lab Results Last 24 Hours: Laboratory Results - last 24 hr 05/11/20 05/11/20 05/12/20 Range/Units 12:45 19:24 05:56 WBC 12.4 H (4.5-11.0) K/uL RBC 3.34 L (4.30-5.90) M/uL Hgb 9.0 L D (12.0-15.0) g/dL Hct 27.5 L (40.0-54.0) % MCV 82 (80-98) fL MCH 27 (27-31) pg MCHC 33 (32-36) % Plt Count 94 L (150-400) K/uL Sodium (140-148) mmol/L Potassium (3.6-5.2) mmol/L Chloride (100-108) mmol/L Carbon Dioxide (21-32) mmol/L Anion Gap (5.0-14.0) mmol/L BUN (7-18) mg/dL Creatinine (0.8-1.3) mg/dL Est Cr Clr Drug Dosing mL/min Estimated GFR (MDRD) (>60) Glucose (74-106) mg/dL Calcium (8.5-10.1) mg/dL Urine Color Yellow (YELLOW) Urine Appearance Clear (CLEAR) Urine pH 5.5 (5.0-8.0) Ur Specific [place] 1.025 (1.008-1.030) Urine Protein Trace H (NEGATIVE) mg/dL Urine Glucose (UA) Negative (NEGATIVE) mg/dL Urine Ketones Negative (NEGATIVE) mg/dL Urine Occult Blood Negative (NEGATIVE) Urine Nitrite Negative (NEGATIVE) Urine Bilirubin Negative (NEGATIVE) Urine Urobilinogen 0.2 (0.2-1.0) EU/dL Ur Leukocyte Esterase Negative (NEGATIVE) Urine RBC 0-5 (0-5) Urine WBC 5-10 H (0-5) Ur Epithelial Cells Not seen Amorphous Sediment Many Urine Bacteria Not seen Urine Mucus Not seen SARS-CoV-2 RNA (GABBY) Negative (NEGATIVE) 05/12/20 Range/Units 05:56 WBC (4.5-11.0) K/uL RBC (4.30-5.90) M/uL Hgb (12.0-15.0) g/dL Hct (40.0-54.0) % MCV (80-98) fL MCH (27-31) pg MCHC (32-36) % Plt Count (150-400) K/uL Sodium 137 L (140-148) mmol/L Potassium 4.0 (3.6-5.2) mmol/L Chloride 104 (100-108) mmol/L Carbon Dioxide 21 (21-32) mmol/L Anion Gap 16.0 H (5.0-14.0) mmol/L BUN 19 H (7-18) mg/dL Creatinine 0.8 (0.8-1.3) mg/dL Est Cr Clr Drug Dosing 85.08 mL/min Estimated GFR (MDRD) > 60 (>60) Glucose 93 (74-106) mg/dL Calcium 7.8 L (8.5-10.1) mg/dL Urine Color (YELLOW) Urine Appearance (CLEAR) Urine pH (5.0-8.0) Ur Specific [place] (1.008-1.030) Urine Protein (NEGATIVE) mg/dL Urine Glucose (UA) (NEGATIVE) mg/dL Urine Ketones (NEGATIVE) mg/dL Urine Occult Blood (NEGATIVE) Urine Nitrite (NEGATIVE) Urine Bilirubin (NEGATIVE) Urine Urobilinogen (0.2-1.0) EU/dL Ur Leukocyte Esterase (NEGATIVE) Urine RBC (0-5) Urine WBC (0-5) Ur Epithelial Cells Amorphous Sediment Urine Bacteria Urine Mucus SARS-CoV-2 RNA (GABBY) (NEGATIVE) Deuce Results Last 24 Hours: Microbiology 05/11/20 12:18 Aerobic Blood Culture - Preliminary Blood - Venous - Iv Start NO GROWTH AFTER 1 DAY Anaerobic Blood Culture - Preliminary NO GROWTH AFTER 1 DAY 05/11/20 11:11 Aerobic Blood Culture - Preliminary Blood - Arm, Left NO GROWTH AFTER 1 DAY Anaerobic Blood Culture - Preliminary NO GROWTH AFTER 1 DAY 05/11/20 11:52 Gram Stain - Final Sputum - Expectorated Respiratory Culture - Preliminary NORMAL RESPIRATORY LAURA 1 DAY Med Orders - Current: Current Medications Acetaminophen (Tylenol) 650 mg PO Q4H PRN PRN Reason: Pain (Mild 1-3)/fever Last Admin: 05/11/20 19:27 Dose: 650 mg Documented by: Albuterol (Proventil Neb Soln) 2.5 mg NEB Q4H PRN PRN Reason: Shortness Of Breath/wheezing Albuterol/Ipratropium (Duoneb 3.0-0.5 Mg/3 Ml) 3 ml NEB QIDRT [facility] Last Admin: 05/12/20 10:46 Dose: 3 ml Documented by: Benzonatate (Tessalon Perles) 100 mg PO TID PRN PRN Reason: Cough Cyclobenzaprine HCl (Flexeril) 10 mg PO TID PRN PRN Reason: Muscle Spasm Last Admin: 05/11/20 20:17 Dose: 10 mg Documented by: Guaifenesin/Dextromethorphan (Robitussin Dm) 10 ml PO Q4H PRN PRN Reason: Cough Doxycycline Hyclate 100 mg/ (Sodium Chloride) 100 mls @ 100 mls/hr IV Q12H [facility] Last Admin: 05/12/20 03:05 Dose: 100 mls/hr Documented by: Ceftriaxone Sodium 1 gm/ (Sodium Chloride) 50 mls @ 100 mls/hr IV Q24H [facility] Last Admin: 05/12/20 11:45 Dose: 100 mls/hr Documented by: Ibuprofen (Motrin) 800 mg PO Q8H PRN PRN Reason: Fever Last Admin: 05/11/20 21:38 Dose: 800 mg Documented by: Lactobacillus Rhamnosus (Culturelle) 1 cap PO BID [facility] Last Admin: 05/12/20 09:08 Dose: 1 cap Documented by: Lorazepam (Ativan) 0.5 mg IVPUSH Q4H PRN PRN Reason: Nausea/Vomiting Magnesium Hydroxide (Milk Of Magnesia) 30 ml PO Q12H PRN PRN Reason: Constipation Melatonin (Melatonin) 9 mg PO BEDTIME PRN PRN Reason: Sleep Nicotine (Habitrol) 21 mg TRDERM DAILY [facility] Last Admin: 05/12/20 09:09 Dose: 21 mg Documented by: Ondansetron HCl (Zofran) 4 mg IV Q6H PRN PRN Reason: Nausea/Vomiting Ondansetron HCl (Zofran Odt) 4 mg PO Q6H PRN PRN Reason: Nausea able to take PO Oxycodone HCl (Oxycodone) 10 mg PO Q4H PRN PRN Reason: Pain Last Admin: 05/12/20 10:35 Dose: 10 mg Documented by: Pantoprazole Sodium (Protonix) 40 mg PO ACBREAKFAST [facility] Last Admin: 05/12/20 07:41 Dose: 40 mg Documented by: Senna/Docusate Sodium (Senna Plus) 1 tab PO BID PRN PRN Reason: Constipation Tamsulosin HCl (Flomax) 0.4 mg PO DAILY [facility] Last Admin: 05/12/20 09:08 Dose: 0.4 mg Documented by: Trazodone HCl (Trazodone) 50 mg PO BEDTIME [facility] Last Admin: 05/11/20 20:11 Dose: 50 mg Documented by: Discontinued Medications Sodium Chloride (Normal Saline) 1,000 mls @ 150 mls/hr IV ASDIRECTED [facility] Last Admin: 05/11/20 12:20 Dose: 150 mls/hr Documented by: Ceftriaxone Sodium 1 gm/ (Sodium Chloride) 50 mls @ 100 mls/hr IV ONETIME ONE Stop: 05/11/20 12:40 Last Admin: 05/11/20 12:27 Dose: 100 mls/hr Documented by: Doxycycline Hyclate 100 mg/ (Sodium Chloride) 100 mls @ 100 mls/hr IV ONETIME ONE Stop: 05/11/20 14:29 Last Admin: 05/11/20 13:36 Dose: 100 mls/hr Documented by: Sodium Chloride (Normal Saline) 1,000 mls @ 125 mls/hr IV ASDIRECTED [facility] Last Admin: 05/12/20 07:43 Dose: 125 mls/hr Documented by: Sodium Chloride (Normal Saline) 1,000 mls @ 500 mls/hr IV ASDIRECTED [facility] Last Admin: 05/11/20 22:05 Dose: 500 mls/hr Documented by: Ketorolac Tromethamine (Toradol) 30 mg IVPUSH ONETIME ONE Stop: 05/11/20 21:39 Last Admin: 05/11/20 22:06 Dose: 30 mg Documented by: Nicotine (Habitrol) 21 mg TRDERM ONETIME ONE Stop: 05/11/20 12:28 Last Admin: 05/11/20 12:34 Dose: 21 mg Documented by: Oxycodone HCl (Oxycodone) 10 mg PO ONETIME ONE Stop: 05/11/20 12:17 Last Admin: 05/11/20 12:28 Dose: 10 mg Documented by: Tamsulosin HCl (Flomax) 0.4 mg PO ONETIME ONE Stop: 05/11/20 17:31 Last Admin: 05/11/20 17:42 Dose: 0.4 mg Documented by: - Exam Quality Assessment: No: Supplemental Oxygen General: Alert, Oriented, Cooperative, No Acute Distress Lungs: Normal Respiratory Effort, Crackles (right mid and lower lung ) Cardiovascular: Regular Rate, Regular Rhythm GI/Abdominal Exam: Soft, No Distention Skin: Warm, Dry Psy/Mental Status: Alert, Normal Affect Sepsis Event Note - Evaluation Sepsis Screening Result: No Definite Risk - Focused Exam Vital Signs: Vital Signs Temp Pulse Resp BP Pulse Ox 05/12/20 13:06 35.8 C L 99 18 97/53 L 92 L 05/12/20 10:57 35.8 C L 100 18 116/54 L 94 L 05/12/20 10:46 86 05/12/20 07:56 90 05/12/20 07:30 36.4 C 90 16 100/71 95 05/12/20 03:09 35.8 C L 87 16 105/53 L - Problem List & Annotations (1) Right lower lobe pneumonia SNOMED Code(s): 305697107 Code(s): J18.9 - PNEUMONIA, UNSPECIFIED ORGANISM Status: Acute Current Visit: Yes Qualifiers: Pneumonia type: due to unspecified organism Qualified Code(s): J18.9 - Pneumonia, unspecified organism (2) COPD (chronic obstructive pulmonary disease) SNOMED Code(s): 51681069 Code(s): J44.9 - CHRONIC OBSTRUCTIVE PULMONARY DISEASE, UNSPECIFIED Status: Chronic Current Visit: Yes Qualifiers: COPD type: unspecified COPD Qualified Code(s): J44.9 - Chronic obstructive pulmonary disease, unspecified (3) Bladder cancer SNOMED Code(s): 371834883 Code(s): C67.9 - MALIGNANT NEOPLASM OF BLADDER, UNSPECIFIED Status: Chronic Current Visit: No Qualifiers: Bladder location: unspecified site Qualified Code(s): C67.9 - Malignant neoplasm of bladder, unspecified - Problem List Review Problem List Initiated/Reviewed/Updated: Yes - My Orders Last 24 Hours: My Active Orders 05/11/20 13:24 Resuscitation Status Routine 05/11/20 14:29 Acetaminophen [TylenoL] 650 mg PO Q4H PRN Albuterol [Proventil Neb Soln] 2.5 mg NEB Q4H PRN Benzonatate [Tessalon Perles] 100 mg PO TID PRN Cyclobenzaprine [Flexeril] 10 mg PO TID PRN Dextromethorphan/guaiFENesin [Robitussin DM] 10 ml PO Q4H PRN Docusate Sodium/Sennosides [Senna Plus] 1 tab PO BID PRN LORazepam [Ativan] 0.5 mg IVPUSH Q4H PRN Magnesium Hydroxide [Milk of Magnesia] 30 ml PO Q12H PRN Melatonin 9 mg PO BEDTIME PRN Ondansetron [Zofran ODT] 4 mg PO Q6H PRN Ondansetron [Zofran] 4 mg IV Q6H PRN oxyCODONE 10 mg PO Q4H PRN 05/11/20 14:29 Patient Status [ADT] Routine Antiembolic Devices [RC] .Routine Intake and Output [RC] Q12H Notify Provider Vital Signs [RC] ASDIRECTED Oxygen Therapy [RC] PRN RT Aerosol Therapy [RC] ASDIRECTED Up With Assistance [RC] ASDIRECTED VTE/DVT Education [RC] Per Unit Routine Vital Signs [RC] Q4H Sequential Compression Device [OM.PC] Routine 05/11/20 15:00 Albuterol/Ipratropium [DuoNeb 3.0-0.5 MG/3 ML] 3 ml NEB QIDRT 05/11/20 Dinner Regular Diet [DIET] 05/11/20 21:00 Lactobacillus Rhamnosus GG [Culturelle] 1 cap PO BID traZODone 50 mg PO BEDTIME 05/12/20 02:00 Doxycycline [Vibramycin] 100 mg Sodium Chloride 0.9% [Normal Saline] 100 ml IV Q12H 05/12/20 07:30 Pantoprazole [ProTONIX] 40 mg PO ACBREAKFAST 05/12/20 09:00 Nicotine [Habitrol] 21 mg TRDERM DAILY Tamsulosin [Flomax] 0.4 mg PO DAILY 05/12/20 12:00 cefTRIAXone [Rocephin] 1 gm Sodium Chloride 0.9% [Normal Saline] 50 ml IV Q24H 05/12/20 13:26 Convert IV to Saline Lock [OM.PC] Routine 05/13/20 05:00 BASIC METABOLIC PANEL,BMP [CHEM] Timed CBC W/O DIFF,HEMOGRAM [HEME] Timed (1) - Plan Plan:: ASSESSMENT AND PLAN - Right lower lobe pneumonia-clinically doing better but still having some fevers. Significant crackles noted on examination. Cultures negative so far. Not hypoxic but symptomatic with activity. -Antibiotic coverage with ceftriaxone and doxycycline -Follow-up cultures -Supplement oxygen if needed -Symptomatic management of cough and fever if present Bladder cancer-followed by the [facility]. Last chemotherapy was 1 week ago. -Outpatient follow-up Mild COPD-no evidence for exacerbation at this time. -Nebulizers Tobacco dependence-encourage cessation Maintenance issues - - DVT prophylaxis -SCDs - GI prophylaxis -not indicated - Nutrition -regular Disposition -I would anticipate discharge home after the hospital stay Primary care physician -Dr. Trever Melara M.D.
[2020-05-12] MEDS: Acetaminophen 325 MG Tab PO PRN (14:49)
[2020-05-12] MEDS: Ibuprofen 800 MG Tab PO PRN (19:37)
[2020-05-12] MEDS: traZODone 50 MG Tab PO SCH (20:34)
[2020-05-12] MEDS: Cyclobenzaprine 10 MG Tab PO PRN (20:37)
[2020-05-12] MEDS ORDERED: Sodium Chloride 0.9% 500 ML IV ONE (21:00)
[2020-05-13] MEDS: Doxycycline 100 MG in Sodium Chloride 0.9% 100 ML IV SCH (01:16)
[2020-05-13] MEDS: Albuterol/Ipratropium 3.0-0.5 MG/3 ML Neb Soln NEB SCH ×4 (07:20→20:08)
[2020-05-13] MEDS: Sodium Chloride 0.9% 1,000 ML IV SCH (08:25)
[2020-05-13] MEDS ORDERED: Diltiazem 25 MG/5 ML SDV IVPUSH ONE (08:55)
--- NOTE | 2020-05-13 08:59 | PCM.PN ---
- General Info Date of Service: 05/13/20 Subjective Update: There were no acute events overnight but this morning the patient was noted to be tachycardic with heart rates in the 160s and 170s. He felt weak and a little more short of breath today. He did not have chest pain or palpitations. Cough has been more productive overnight. Appetite and strength have been decent. Temperature curve seems to be improving. He is requiring supplemental oxygen at this time. Functional Status: Reports: Pain Controlled, Tolerating Diet - Review of Systems General: Reports: Fever, Weakness Pulmonary: Reports: Shortness of Breath, Cough, Sputum - Patient Data Vitals - Most Recent: Last Vital Signs Temp 37.2 C 05/13/20 08:01 Pulse 160 H 05/13/20 08:01 Resp 16 05/13/20 08:01 BP 108/54 L 05/13/20 08:01 Pulse Ox 91 L 05/13/20 08:01 Weight - Most Recent: 67.132 kg I&O - Last 24 Hours: Intake & Output 05/12/20 05/13/20 05/13/20 22:59 06:59 14:59 Intake Total 1615 975 Output Total 675 1575 Balance 940 -600 Lab Results Last 24 Hours: Laboratory Results - last 24 hr 05/13/20 05/13/20 Range/Units 04:20 04:20 WBC 12.8 H (4.5-11.0) K/uL RBC 3.43 L (4.30-5.90) M/uL Hgb 9.4 L (12.0-15.0) g/dL Hct 28.2 L (40.0-54.0) % MCV 82 (80-98) fL MCH 27 (27-31) pg MCHC 33 (32-36) % Plt Count 114 L (150-400) K/uL Sodium 135 L (140-148) mmol/L Potassium 3.9 (3.6-5.2) mmol/L Chloride 103 (100-108) mmol/L Carbon Dioxide 21 (21-32) mmol/L Anion Gap 14.9 H (5.0-14.0) mmol/L BUN 10 (7-18) mg/dL Creatinine 0.7 L (0.8-1.3) mg/dL Est Cr Clr Drug Dosing 97.23 mL/min Estimated GFR (MDRD) > 60 (>60) Glucose 82 (74-106) mg/dL Calcium 8.1 L (8.5-10.1) mg/dL Deuce Results Last 24 Hours: Microbiology 05/11/20 11:52 Gram Stain - Final Sputum - Expectorated Respiratory Culture - Final NORMAL RESPIRATORY LAURA 2 DAYS 05/11/20 12:18 Aerobic Blood Culture - Preliminary Blood - Venous - Iv Start NO GROWTH AFTER 1 DAY Anaerobic Blood Culture - Preliminary NO GROWTH AFTER 1 DAY 05/11/20 11:11 Aerobic Blood Culture - Preliminary Blood - Arm, Left NO GROWTH AFTER 1 DAY Anaerobic Blood Culture - Preliminary NO GROWTH AFTER 1 DAY Med Orders - Current: Current Medications Acetaminophen (Tylenol) 650 mg PO Q4H PRN PRN Reason: Pain (Mild 1-3)/fever Last Admin: 05/12/20 14:49 Dose: 650 mg Documented by: Albuterol (Proventil Neb Soln) 2.5 mg NEB Q4H PRN PRN Reason: Shortness Of Breath/wheezing Last Admin: 05/13/20 04:18 Dose: 2.5 mg Documented by: Albuterol/Ipratropium (Duoneb 3.0-0.5 Mg/3 Ml) 3 ml NEB QIDRT [facility] Last Admin: 05/13/20 07:20 Dose: 3 ml Documented by: Azithromycin (Zithromax) 500 mg PO DAILY [facility] Benzonatate (Tessalon Perles) 100 mg PO TID PRN PRN Reason: Cough Cyclobenzaprine HCl (Flexeril) 10 mg PO TID PRN PRN Reason: Muscle Spasm Last Admin: 05/12/20 20:37 Dose: 10 mg Documented by: Guaifenesin/Dextromethorphan (Robitussin Dm) 10 ml PO Q4H PRN PRN Reason: Cough Ceftriaxone Sodium 1 gm/ (Sodium Chloride) 50 mls @ 100 mls/hr IV Q24H [facility] Last Admin: 05/12/20 11:45 Dose: 100 mls/hr Documented by: Diltiazem HCl 100 mg/ Sodium (Chloride) 100 mls @ 5 mls/hr IV TITRATE [facility]; Protocol Sodium Chloride (Normal Saline) 1,000 mls @ 50 mls/hr IV ASDIRECTED [facility] Ibuprofen (Motrin) 800 mg PO Q8H PRN PRN Reason: Fever Last Admin: 05/12/20 19:37 Dose: 800 mg Documented by: Lactobacillus Rhamnosus (Culturelle) 1 cap PO BID [facility] Last Admin: 05/12/20 20:34 Dose: 1 cap Documented by: Lorazepam (Ativan) 0.5 mg IVPUSH Q4H PRN PRN Reason: Nausea/Vomiting Magnesium Hydroxide (Milk Of Magnesia) 30 ml PO Q12H PRN PRN Reason: Constipation Melatonin (Melatonin) 9 mg PO BEDTIME PRN PRN Reason: Sleep Last Admin: 05/12/20 20:34 Dose: 9 mg Documented by: Nicotine (Habitrol) 21 mg TRDERM DAILY [facility] Last Admin: 05/12/20 09:09 Dose: 21 mg Documented by: Ondansetron HCl (Zofran) 4 mg IV Q6H PRN PRN Reason: Nausea/Vomiting Ondansetron HCl (Zofran Odt) 4 mg PO Q6H PRN PRN Reason: Nausea able to take PO Last Admin: 05/12/20 19:37 Dose: 4 mg Documented by: Oxycodone HCl (Oxycodone) 10 mg PO Q4H PRN PRN Reason: Pain Last Admin: 05/12/20 21:23 Dose: 10 mg Documented by: Pantoprazole Sodium (Protonix) 40 mg PO ACBREAKFAST [facility] Last Admin: 05/12/20 07:41 Dose: 40 mg Documented by: Senna/Docusate Sodium (Senna Plus) 1 tab PO BID PRN PRN Reason: Constipation Tamsulosin HCl (Flomax) 0.4 mg PO DAILY [facility] Last Admin: 05/12/20 09:08 Dose: 0.4 mg Documented by: Trazodone HCl (Trazodone) 50 mg PO BEDTIME [facility] Last Admin: 05/12/20 20:34 Dose: 50 mg Documented by: Discontinued Medications Diltiazem HCl (Diltiazem) 10 mg IVPUSH ONETIME ONE Stop: 05/13/20 08:56 Sodium Chloride (Normal Saline) 1,000 mls @ 150 mls/hr IV ASDIRECTED [facility] Last Admin: 05/11/20 12:20 Dose: 150 mls/hr Documented by: Ceftriaxone Sodium 1 gm/ (Sodium Chloride) 50 mls @ 100 mls/hr IV ONETIME ONE Stop: 05/11/20 12:40 Last Admin: 05/11/20 12:27 Dose: 100 mls/hr Documented by: Doxycycline Hyclate 100 mg/ (Sodium Chloride) 100 mls @ 100 mls/hr IV ONETIME ONE Stop: 05/11/20 14:29 Last Admin: 05/11/20 13:36 Dose: 100 mls/hr Documented by: Sodium Chloride (Normal Saline) 1,000 mls @ 125 mls/hr IV ASDIRECTED [facility] Last Admin: 05/12/20 07:43 Dose: 125 mls/hr Documented by: Doxycycline Hyclate 100 mg/ (Sodium Chloride) 100 mls @ 100 mls/hr IV Q12H [facility] Last Admin: 05/13/20 01:16 Dose: 100 mls/hr Documented by: Sodium Chloride (Normal Saline) 1,000 mls @ 500 mls/hr IV ASDIRECTED [facility] Last Admin: 05/11/20 22:05 Dose: 500 mls/hr Documented by: Sodium Chloride (Normal Saline) 500 mls @ 999 mls/hr IV .BOLUS ONE Stop: 05/12/20 21:30 Last Admin: 05/12/20 21:14 Dose: 999 mls/hr Documented by: Sodium Chloride (Normal Saline) 1,000 mls @ 125 mls/hr IV ASDIRECTED [facility] Last Admin: 05/13/20 08:25 Dose: 125 mls/hr Documented by: Ketorolac Tromethamine (Toradol) 30 mg IVPUSH ONETIME ONE Stop: 05/11/20 21:39 Last Admin: 05/11/20 22:06 Dose: 30 mg Documented by: Nicotine (Habitrol) 21 mg TRDERM ONETIME ONE Stop: 05/11/20 12:28 Last Admin: 05/11/20 12:34 Dose: 21 mg Documented by: Oxycodone HCl (Oxycodone) 10 mg PO ONETIME ONE Stop: 05/11/20 12:17 Last Admin: 05/11/20 12:28 Dose: 10 mg Documented by: Tamsulosin HCl (Flomax) 0.4 mg PO ONETIME ONE Stop: 05/11/20 17:31 Last Admin: 05/11/20 17:42 Dose: 0.4 mg Documented by: - Exam Quality Assessment: Supplemental Oxygen General: Alert, Oriented, Cooperative, No Acute Distress Lungs: Crackles (right mid and lower lung ). No: Normal Respiratory Effort (increased work of breathing ), Wheezing Cardiovascular: Irregular Rhythm, Tachycardia GI/Abdominal Exam: Soft, No Distention Extremities: No Pedal Edema. No: Increased Warmth Skin: Warm, Dry Psy/Mental Status: Alert, Normal Affect Sepsis Event Note - Evaluation Sepsis Screening Result: Severe Sepsis Risk - Focused Exam Vital Signs: Vital Signs Temp Pulse Resp BP Pulse Ox Pulse Ox 05/13/20 08:01 37.2 C 160 H 16 108/54 L 91 L 05/13/20 07:21 150 H 91 L 05/13/20 06:45 37.6 C 166 H 18 108/67 05/13/20 04:19 36.4 C 98 18 116/46 L 88 L 05/12/20 22:27 36.9 C 99 18 97/56 L 90 L - Problem List & Annotations (1) Right lower lobe pneumonia SNOMED Code(s): 636493058 Code(s): J18.9 - PNEUMONIA, UNSPECIFIED ORGANISM Status: Acute Current Visit: Yes Qualifiers: Pneumonia type: due to unspecified organism Qualified Code(s): J18.9 - Pneumonia, unspecified organism (2) COPD (chronic obstructive pulmonary disease) SNOMED Code(s): 32939903 Code(s): J44.9 - CHRONIC OBSTRUCTIVE PULMONARY DISEASE, UNSPECIFIED Status: Chronic Current Visit: Yes Qualifiers: COPD type: unspecified COPD Qualified Code(s): J44.9 - Chronic obstructive pulmonary disease, unspecified (3) Bladder cancer SNOMED Code(s): 147165436 Code(s): C67.9 - MALIGNANT NEOPLASM OF BLADDER, UNSPECIFIED Status: Chronic Current Visit: No Qualifiers: Bladder location: unspecified site Qualified Code(s): C67.9 - Malignant neoplasm of bladder, unspecified (4) Atrial fibrillation with rapid ventricular response SNOMED Code(s): 043154369734544 Code(s): I48.91 - UNSPECIFIED ATRIAL FIBRILLATION Status: Acute Current Visit: Yes - Problem List Review Problem List Initiated/Reviewed/Updated: Yes - My Orders Last 24 Hours: My Active Orders 05/12/20 09:00 Nicotine [Habitrol] 21 mg TRDERM DAILY Tamsulosin [Flomax] 0.4 mg PO DAILY 05/12/20 12:00 cefTRIAXone [Rocephin] 1 gm Sodium Chloride 0.9% [Normal Saline] 50 ml IV Q24H 05/12/20 13:26 Convert IV to Saline Lock [OM.PC] Routine 05/13/20 08:19 EKG Documentation Completion [RC] ASDIRECTED EKG 12 Lead [EK] Urgent 05/13/20 08:57 CULTURE RESPIRATORY + SMEAR [RM] Routine MAGNESIUM [CHEM] Urgent 05/13/20 09:00 Azithromycin [Zithromax] 500 mg PO DAILY Diltiazem 100 MG in Normal Saline Adv @ 5 MG/HR(100ml) Diltiazem [Cardizem] 100 mg Sodium Chloride 0.9% [Normal Saline] 100 ml IV TITRATE Sodium Chloride 0.9% [Normal Saline] 1,000 ml IV ASDIRECTED - Plan Plan:: ASSESSMENT AND PLAN - Right lower lobe pneumonia-clinically doing better and temperature curve is a little better. He is now hypoxic and requiring supplemental oxygen. Cough is been more productive. Cultures have been negative. -Antibiotic coverage with ceftriaxone and azithromycin -Follow-up cultures -Supplement oxygen if needed -Symptomatic management of cough and fever if present Atrial fibrillation with rapid ventricular response-sudden onset this morning. Probably related to his pneumonia with possible contribution from low normal potassium and low magnesium. Did not respond to diltiazem and digoxin. Back in sinus rhythm after transition to amiodarone. -Continue amiodarone infusion with plan to complete 24-hour protocol -Cardiac monitoring -Optimize electrolytes including potassium and magnesium Bladder cancer-followed by the infusion center. Last chemotherapy was 1 week prior to admission. -Outpatient follow-up Mild COPD-no evidence for exacerbation at this time. -Nebulizers Tobacco dependence-encourage cessation Maintenance issues - - DVT prophylaxis -SCDs - GI prophylaxis -not indicated - Nutrition -regular Disposition -I would anticipate discharge home after the hospital stay The patient was transferred to the intensive care unit this morning for management of atrial fibrillation with a rapid ventricular response. Critical care time was 45 minutes for management of antiarrhythmic drugs to control the heart rate and stabilize patient with low blood pressure. Primary care physician -Dr. Trever Melara M.D.
[2020-05-13] MEDS ORDERED: Sodium Chloride 0.9% 1,000 ML IV SCH (09:00)
[2020-05-13] MEDS ORDERED: Diltiazem 100 MG in Sodium Chloride 0.9% 100 ML IV SCH (09:00)
[2020-05-13] MEDS ORDERED: Digoxin 500 MCG/2 ML Amp IVPUSH ONE (09:37)
[2020-05-13] MEDS ORDERED: Digoxin 500 MCG/2 ML Amp ONE (09:58)
[2020-05-13] MEDS: Lactobacillus Rhamnosus GG (Probiotic) Cap PO SCH ×2 (10:06→20:07)
[2020-05-13] MEDS: Nicotine 21 MG/24 Hr Patch TRDERM SCH (10:06)
[2020-05-13] MEDS: Tamsulosin 0.4 MG Cap.ER PO SCH (10:06)
[2020-05-13] MEDS: Pantoprazole 40 MG Tab.CR PO SCH (10:06)
[2020-05-13] MEDS: Magnesium Sulfate/Water 2 GM in Premix Bag 1 BAG IV SCH ×3 (10:07→21:04)
[2020-05-13] MEDS: oxyCODONE 5 MG Tab PO PRN ×3 (10:10→20:25)
[2020-05-13] MEDS ORDERED: Amiodarone In Dextrose,Iso-Osm 150 MG in Premix Bag 1 BAG IV ONE ×2 (10:28)
[2020-05-13] MEDS: Azithromycin 250 MG Tab PO SCH (11:25)
[2020-05-13] MEDS: cefTRIAXone 1 GM in Sodium Chloride 0.9% 50 ML IV SCH (12:45)
[2020-05-13] MEDS: Ondansetron 4 MG Tab.DIS PO PRN (15:44)
[2020-05-13] MEDS: Acetaminophen 325 MG Tab PO PRN (19:51)
[2020-05-13] MEDS: traZODone 50 MG Tab PO SCH (20:07)
[2020-05-13] MEDS: LORazepam 2 MG/ML SDV IVPUSH PRN (20:21)
[2020-05-14] MEDS: Magnesium Sulfate/Water 2 GM in Premix Bag 1 BAG IV SCH ×2 (03:10→09:30)
[2020-05-14] MEDS: Ondansetron 4 MG Tab.DIS PO PRN ×4 (03:13→18:38)
[2020-05-14] MEDS: oxyCODONE 5 MG Tab PO PRN ×4 (03:14→19:57)
[2020-05-14] MEDS: Albuterol/Ipratropium 3.0-0.5 MG/3 ML Neb Soln NEB SCH ×4 (07:04→20:01)
[2020-05-14] MEDS: Pantoprazole 40 MG Tab.CR PO SCH (07:17)
[2020-05-14] MEDS: Tamsulosin 0.4 MG Cap.ER PO SCH (08:47)
[2020-05-14] MEDS: Azithromycin 250 MG Tab PO SCH (08:47)
[2020-05-14] MEDS: Nicotine 21 MG/24 Hr Patch TRDERM SCH (08:47)
[2020-05-14] MEDS: Lactobacillus Rhamnosus GG (Probiotic) Cap PO SCH ×2 (08:47→20:01)
[2020-05-14] MEDS ORDERED: Sodium Chloride 0.9% 1,000 ML IV SCH (09:36)
--- NOTE | 2020-05-14 09:38 | PCM.PN ---
- General Info Date of Service: 05/14/20 Subjective Update: No acute events overnight. Heart rate has remained in sinus rhythm. He has nearly completed his amiodarone infusion. Blood pressures are stable. He feels a little less short of breath today. Strength is a little better. Still requiring supplemental oxygen. No fevers. Respiratory sample yesterday showed a variety of different organisms on the Gram stain and culture is pending. Chronic nausea is stable. Functional Status: Reports: Pain Controlled, Tolerating Diet - Review of Systems General: Reports: Weakness. Denies: Fever Pulmonary: Reports: Shortness of Breath - Patient Data Vitals - Most Recent: Last Vital Signs Temp 37.4 C 05/14/20 07:00 Pulse 88 05/14/20 07:05 Resp 20 05/14/20 08:00 BP 108/59 L 05/14/20 08:00 Pulse Ox 95 05/14/20 08:00 Weight - Most Recent: 67.132 kg I&O - Last 24 Hours: Intake & Output 05/13/20 05/14/20 05/14/20 22:59 06:59 14:59 Intake Total 2095 1460 360 Output Total 1460 1350 400 Balance 635 110 -40 Deuce Results Last 24 Hours: Microbiology 05/13/20 18:14 Gram Stain - Final Sputum - Expectorated 05/11/20 12:18 Aerobic Blood Culture - Preliminary Blood - Venous - Iv Start NO GROWTH AFTER 2 DAYS Anaerobic Blood Culture - Preliminary NO GROWTH AFTER 2 DAYS 05/11/20 11:11 Aerobic Blood Culture - Preliminary Blood - Arm, Left NO GROWTH AFTER 2 DAYS Anaerobic Blood Culture - Preliminary NO GROWTH AFTER 2 DAYS 05/11/20 11:52 Gram Stain - Final Sputum - Expectorated Respiratory Culture - Final NORMAL RESPIRATORY LAURA 2 DAYS Med Orders - Current: Current Medications Acetaminophen (Tylenol) 650 mg PO Q4H PRN PRN Reason: Pain (Mild 1-3)/fever Last Admin: 05/13/20 19:51 Dose: 650 mg Documented by: Albuterol (Proventil Neb Soln) 2.5 mg NEB Q4H PRN PRN Reason: Shortness Of Breath/wheezing Last Admin: 05/13/20 04:18 Dose: 2.5 mg Documented by: Albuterol/Ipratropium (Duoneb 3.0-0.5 Mg/3 Ml) 3 ml NEB QIDRT [facility] Last Admin: 05/14/20 07:04 Dose: 3 ml Documented by: Azithromycin (Zithromax) 500 mg PO DAILY [facility] Last Admin: 05/14/20 08:47 Dose: 500 mg Documented by: Benzonatate (Tessalon Perles) 100 mg PO TID PRN PRN Reason: Cough Cyclobenzaprine HCl (Flexeril) 10 mg PO TID PRN PRN Reason: Muscle Spasm Last Admin: 05/12/20 20:37 Dose: 10 mg Documented by: Guaifenesin/Dextromethorphan (Robitussin Dm) 10 ml PO Q4H PRN PRN Reason: Cough Ceftriaxone Sodium 1 gm/ (Sodium Chloride) 50 mls @ 100 mls/hr IV Q24H [facility] Last Admin: 05/13/20 12:45 Dose: 100 mls/hr Documented by: Sodium Chloride (Normal Saline) 1,000 mls @ 50 mls/hr IV ASDIRECTED [facility] Last Admin: 05/14/20 03:10 Dose: 50 mls/hr Documented by: Magnesium Sulfate 2 gm/ Premix 50 mls @ 25 mls/hr IV Q6H [facility] Stop: 05/14/20 11:59 Last Admin: 05/14/20 09:30 Dose: 25 mls/hr Documented by: Amiodarone HCl 450 mg/ (Dextrose/Water) 250 mls @ 33.333 mls/hr IV ASDIRECTED [facility]; Protocol Last Admin: 05/13/20 19:52 Dose: 0.5 mg/min, 16.667 mls/hr Documented by: Ibuprofen (Motrin) 800 mg PO Q8H PRN PRN Reason: Fever Last Admin: 05/12/20 19:37 Dose: 800 mg Documented by: Lactobacillus Rhamnosus (Culturelle) 1 cap PO BID [facility] Last Admin: 05/14/20 08:47 Dose: 1 cap Documented by: Lorazepam (Ativan) 0.5 mg IVPUSH Q4H PRN PRN Reason: Nausea/Vomiting Last Admin: 05/13/20 20:21 Dose: 0.5 mg Documented by: Magnesium Hydroxide (Milk Of Magnesia) 30 ml PO Q12H PRN PRN Reason: Constipation Melatonin (Melatonin) 9 mg PO BEDTIME PRN PRN Reason: Sleep Last Admin: 05/12/20 20:34 Dose: 9 mg Documented by: Nicotine (Habitrol) 21 mg TRDERM DAILY [facility] Last Admin: 05/14/20 08:47 Dose: 21 mg Documented by: Ondansetron HCl (Zofran) 4 mg IV Q6H PRN PRN Reason: Nausea/Vomiting Ondansetron HCl (Zofran Odt) 8 mg PO Q4H PRN PRN Reason: Nausea/Vomiting Last Admin: 05/14/20 09:12 Dose: 8 mg Documented by: Oxycodone HCl (Oxycodone) 10 mg PO Q4H PRN PRN Reason: Pain Last Admin: 05/14/20 09:27 Dose: 10 mg Documented by: Pantoprazole Sodium (Protonix) 40 mg PO ACBREAKFAST [facility] Last Admin: 05/14/20 07:17 Dose: 40 mg Documented by: Senna/Docusate Sodium (Senna Plus) 1 tab PO BID PRN PRN Reason: Constipation Tamsulosin HCl (Flomax) 0.4 mg PO DAILY [facility] Last Admin: 05/14/20 08:47 Dose: 0.4 mg Documented by: Trazodone HCl (Trazodone) 50 mg PO BEDTIME [facility] Last Admin: 05/13/20 20:07 Dose: 50 mg Documented by: Discontinued Medications Digoxin (Lanoxin) 125 mcg IVPUSH ONETIME ONE Stop: 05/13/20 09:38 Last Admin: 05/13/20 09:54 Dose: 125 mcg Documented by: Digoxin (Lanoxin) Confirm Administered Dose 500 mcg .ROUTE .STK-MED ONE Stop: 05/13/20 09:59 Last Admin: 05/13/20 10:07 Dose: Not Given Documented by: Diltiazem HCl (Diltiazem) 10 mg IVPUSH ONETIME ONE Stop: 05/13/20 08:56 Last Admin: 05/13/20 09:06 Dose: 10 mg Documented by: Sodium Chloride (Normal Saline) 1,000 mls @ 150 mls/hr IV ASDIRECTED [facility] Last Admin: 05/11/20 12:20 Dose: 150 mls/hr Documented by: Ceftriaxone Sodium 1 gm/ (Sodium Chloride) 50 mls @ 100 mls/hr IV ONETIME ONE Stop: 05/11/20 12:40 Last Admin: 05/11/20 12:27 Dose: 100 mls/hr Documented by: Doxycycline Hyclate 100 mg/ (Sodium Chloride) 100 mls @ 100 mls/hr IV ONETIME ONE Stop: 05/11/20 14:29 Last Admin: 05/11/20 13:36 Dose: 100 mls/hr Documented by: Sodium Chloride (Normal Saline) 1,000 mls @ 125 mls/hr IV ASDIRECTED [facility] Last Admin: 05/12/20 07:43 Dose: 125 mls/hr Documented by: Doxycycline Hyclate 100 mg/ (Sodium Chloride) 100 mls @ 100 mls/hr IV Q12H [facility] Last Admin: 05/13/20 01:16 Dose: 100 mls/hr Documented by: Sodium Chloride (Normal Saline) 1,000 mls @ 500 mls/hr IV ASDIRECTED [facility] Last Admin: 05/11/20 22:05 Dose: 500 mls/hr Documented by: Sodium Chloride (Normal Saline) 500 mls @ 999 mls/hr IV .BOLUS ONE Stop: 05/12/20 21:30 Last Admin: 05/12/20 21:14 Dose: 999 mls/hr Documented by: Sodium Chloride (Normal Saline) 1,000 mls @ 125 mls/hr IV ASDIRECTED [facility] Last Admin: 05/13/20 08:25 Dose: 125 mls/hr Documented by: Diltiazem HCl 100 mg/ Sodium (Chloride) 100 mls @ 5 mls/hr IV TITRATE [facility]; Protocol Last Titration: 05/13/20 10:50 Dose: 0 mg/hr, 0 mls/hr Documented by: Amiodarone HCl/Dextrose 150 mg (/ Premix) 100 mls @ 400 mls/hr IV NOW ONE Stop: 05/13/20 10:42 Last Admin: 05/13/20 10:47 Dose: 400 mls/hr Documented by: Ketorolac Tromethamine (Toradol) 30 mg IVPUSH ONETIME ONE Stop: 05/11/20 21:39 Last Admin: 05/11/20 22:06 Dose: 30 mg Documented by: Nicotine (Habitrol) 21 mg TRDERM ONETIME ONE Stop: 05/11/20 12:28 Last Admin: 05/11/20 12:34 Dose: 21 mg Documented by: Ondansetron HCl (Zofran Odt) 4 mg PO Q6H PRN PRN Reason: Nausea able to take PO Last Admin: 05/12/20 19:37 Dose: 4 mg Documented by: Ondansetron HCl (Zofran Odt) 8 mg PO Q6H PRN PRN Reason: Nausea able to take PO Last Admin: 05/14/20 03:13 Dose: 8 mg Documented by: Oxycodone HCl (Oxycodone) 10 mg PO ONETIME ONE Stop: 05/11/20 12:17 Last Admin: 05/11/20 12:28 Dose: 10 mg Documented by: Tamsulosin HCl (Flomax) 0.4 mg PO ONETIME ONE Stop: 05/11/20 17:31 Last Admin: 05/11/20 17:42 Dose: 0.4 mg Documented by: - Exam Quality Assessment: Supplemental Oxygen General: Alert, Oriented, Cooperative, No Acute Distress Lungs: Normal Respiratory Effort, Crackles (rare left lower lung ) Cardiovascular: Regular Rate, Regular Rhythm GI/Abdominal Exam: Soft, No Distention Extremities: No Pedal Edema. No: Increased Warmth Skin: Warm, Dry Psy/Mental Status: Alert, Normal Affect Sepsis Event Note - Evaluation Sepsis Screening Result: No Definite Risk - Focused Exam Vital Signs: Vital Signs Temp Pulse Resp BP BP Pulse Ox 05/14/20 08:00 20 108/59 L 95 05/14/20 07:05 88 05/14/20 07:00 37.4 C 19 104/56 L 93 L 05/14/20 06:00 37.0 C 19 106/42 L 93 L 05/14/20 05:00 20 101/46 L 93 L 05/14/20 04:00 20 99/51 L 93 L 05/14/20 03:00 37.0 C 19 101/52 L 90 L 05/14/20 02:00 16 94/55 L 90 L 05/14/20 01:00 18 90/43 L 90 L 05/14/20 00:00 20 103/55 L 89 L 05/13/20 23:00 36.6 C 21 H 94/55 L 94 L 05/13/20 22:00 14 104/54 L 95 - Problem List & Annotations (1) Right lower lobe pneumonia SNOMED Code(s): 731136428 Code(s): J18.9 - PNEUMONIA, UNSPECIFIED ORGANISM Status: Acute Current Visit: Yes Qualifiers: Pneumonia type: due to unspecified organism Qualified Code(s): J18.9 - Pneumonia, unspecified organism (2) COPD (chronic obstructive pulmonary disease) SNOMED Code(s): 53577247 Code(s): J44.9 - CHRONIC OBSTRUCTIVE PULMONARY DISEASE, UNSPECIFIED Status: Chronic Current Visit: Yes Qualifiers: COPD type: unspecified COPD Qualified Code(s): J44.9 - Chronic obstructive pulmonary disease, unspecified (3) Bladder cancer SNOMED Code(s): 797806403 Code(s): C67.9 - MALIGNANT NEOPLASM OF BLADDER, UNSPECIFIED Status: Chronic Current Visit: No Qualifiers: Bladder location: unspecified site Qualified Code(s): C67.9 - Malignant neoplasm of bladder, unspecified (4) Atrial fibrillation with rapid ventricular response SNOMED Code(s): 860983973391564 Code(s): I48.91 - UNSPECIFIED ATRIAL FIBRILLATION Status: Acute Current Visit: Yes (5) Acute respiratory failure with hypoxia SNOMED Code(s): 24747832, 711035799 Code(s): J96.01 - ACUTE RESPIRATORY FAILURE WITH HYPOXIA Status: Acute Current Visit: Yes - Problem List Review Problem List Initiated/Reviewed/Updated: Yes - My Orders Last 24 Hours: My Active Orders 05/13/20 09:00 Azithromycin [Zithromax] 500 mg PO DAILY Sodium Chloride 0.9% [Normal Saline] 1,000 ml IV ASDIRECTED 05/13/20 09:39 Transfer Patient (Change bed) [ADT] Routine 05/13/20 09:40 Cardiac Monitoring [RC] CONTINUOUS 05/13/20 10:00 Magnesium Sulfate/Water [Magnesium Sulfate in Water Premix] 2 gm Premix Bag 1 bag IV Q6H 05/13/20 10:30 Amiodarone [Cordarone] 450 mg Dextrose 5% in Water 241 ml IV ASDIRECTED 05/13/20 18:14 CULTURE RESPIRATORY + SMEAR [RM] Routine 05/14/20 03:22 Ondansetron [Zofran ODT] 8 mg PO Q4H PRN 05/14/20 09:36 Sodium Chloride 0.9% [Normal Saline] 1,000 ml IV ASDIRECTED 05/14/20 21:00 Amiodarone [Cordarone] 200 mg PO BID 05/15/20 05:00 BASIC METABOLIC PANEL,BMP [CHEM] Timed CBC W/O DIFF,HEMOGRAM [HEME] Timed (1) - Plan Plan:: ASSESSMENT AND PLAN - Right lower lobe pneumonia-currently requiring supplemental oxygen. Clinically looks a little better today. Strength and appetite are improving. -Antibiotic coverage with ceftriaxone and azithromycin -Follow-up cultures -Supplement oxygen as needed -Symptomatic management of cough and fever if present Atrial fibrillation with rapid ventricular response-back in sinus rhythm with amiodarone infusion. -Continue amiodarone infusion with plan to complete 24-hour protocol -Start oral amiodarone tonight -Cardiac monitoring -Optimize electrolytes including potassium and magnesium Bladder cancer-followed by the infusion center. Last chemotherapy was 1 week prior to admission. -Outpatient follow-up Mild COPD-no evidence for exacerbation at this time. -Nebulizers Tobacco dependence-encourage cessation Maintenance issues - - DVT prophylaxis -SCDs - GI prophylaxis -not indicated - Nutrition -regular Disposition -I would anticipate discharge home after the hospital stay Stalin Melara M.D.
[2020-05-14] MEDS: Polyethylene Glycol 3350 Powder 17 GM Packet PO SCH (12:19)
[2020-05-14] MEDS: cefTRIAXone 1 GM in Sodium Chloride 0.9% 50 ML IV SCH (12:21)
[2020-05-14] MEDS: Acetaminophen 325 MG Tab PO PRN (17:48)
[2020-05-14] MEDS: Cyclobenzaprine 10 MG Tab PO PRN (19:58)
[2020-05-14] MEDS: traZODone 50 MG Tab PO SCH (20:00)
[2020-05-14] MEDS: Amiodarone 200 MG Tab PO SCH (20:00)
[2020-05-15] MEDS ORDERED: Amiodarone In Dextrose,Iso-Osm 150 MG in Premix Bag 1 BAG IV ONE ×2 (00:15)
[2020-05-15] MEDS: Albuterol/Ipratropium 3.0-0.5 MG/3 ML Neb Soln NEB SCH ×4 (07:30→21:44)
[2020-05-15] MEDS: Ondansetron 4 MG Tab.DIS PO PRN ×4 (07:52→21:46)
[2020-05-15] MEDS: oxyCODONE 5 MG Tab PO PRN ×4 (07:53→21:45)
[2020-05-15] MEDS: Pantoprazole 40 MG Tab.CR PO SCH (07:57)
[2020-05-15] MEDS: Polyethylene Glycol 3350 Powder 17 GM Packet PO SCH (09:57)
[2020-05-15] MEDS: Lactobacillus Rhamnosus GG (Probiotic) Cap PO SCH ×2 (09:58→21:44)
[2020-05-15] MEDS: Amiodarone 200 MG Tab PO SCH ×2 (09:58→21:44)
[2020-05-15] MEDS: Nicotine 21 MG/24 Hr Patch TRDERM SCH (09:58)
[2020-05-15] MEDS: Tamsulosin 0.4 MG Cap.ER PO SCH (09:58)
[2020-05-15] MEDS: Nystatin Susp 100,000 Unit/ML 5 ML UD Cup PO SCH ×3 (10:31→21:44)
[2020-05-15] MEDS: Doxycycline 100 MG Cap PO SCH ×2 (10:31→21:44)
[2020-05-15] MEDS: Azithromycin 250 MG Tab PO SCH (10:57)
--- NOTE | 2020-05-15 11:18 | CRLCR ---
Indication: Pneumonia follow-up. Technique: Chest 2 views Comparison: 05/11/2020. Findings: Cardiac size is top normal, unchanged. Atherosclerotic aorta is again noted. Left chest port tip is unchanged in position. Patchy right lower lung opacities are similar to slightly increased from prior. Small right pleural effusion. No significant pneumothorax. Biapical scarring is again noted. Interstitial prominence is again noted. Impression: : 1. Patchy right lower lung opacities consistent with pneumonia, increased from prior. Recommend continued follow-up to resolution. 2. Small right pleural effusion. 3. Interstitial prominence, similar to prior. Dictated by Darius Coronado MD @ May 15 2020 11:09AM Signed by Dr. Darius Coronado @ May 15 2020 11:16AM
[2020-05-15] MEDS: cefTRIAXone 1 GM in Sodium Chloride 0.9% 50 ML IV SCH (11:34)
--- NOTE | 2020-05-15 14:07 | PCM.PN ---
- General Info Date of Service: 05/15/20 Subjective Update: Overnight the patient had a return to atrial fibrillation with a rapid ventricular response. We gave him 150 mg of IV amiodarone and he returned to a sinus rhythm. He has been in sinus rhythm since that time. Cough is still productive but sputum is now clear rather than yellow. No chest pain. Strength and appetite are improving. He does continue to require supplemental oxygen and becomes hypoxic with saturations in the 80s with activity when he is off oxygen. His respiratory culture grew out yeast but I suspect this is related to oral contamination with thrush. Functional Status: Reports: Pain Controlled, Tolerating Diet - Patient Data Vitals - Most Recent: Last Vital Signs Temp 37.1 C 05/15/20 13:00 Pulse 90 05/15/20 13:00 Resp 20 05/15/20 13:00 BP 112/63 05/15/20 13:00 Pulse Ox 93 L 05/15/20 13:00 Weight - Most Recent: 67.132 kg I&O - Last 24 Hours: Intake & Output 05/14/20 05/15/20 05/15/20 22:59 06:59 14:59 Intake Total 1157 100 410 Output Total 1100 700 400 Balance 57 -600 10 Lab Results Last 24 Hours: Laboratory Results - last 24 hr 05/15/20 05/15/20 Range/Units 05:30 05:30 WBC 12.1 H (4.5-11.0) K/uL RBC 3.33 L (4.30-5.90) M/uL Hgb 8.9 L (12.0-15.0) g/dL Hct 27.3 L (40.0-54.0) % MCV 82 (80-98) fL MCH 27 (27-31) pg MCHC 33 (32-36) % Plt Count 217 (150-400) K/uL Sodium 134 L (140-148) mmol/L Potassium 4.0 (3.6-5.2) mmol/L Chloride 100 (100-108) mmol/L Carbon Dioxide 27 (21-32) mmol/L Anion Gap 11.0 (5.0-14.0) mmol/L BUN 7 (7-18) mg/dL Creatinine 0.7 L (0.8-1.3) mg/dL Est Cr Clr Drug Dosing 97.23 mL/min Estimated GFR (MDRD) > 60 (>60) Glucose 97 (74-106) mg/dL Calcium 7.9 L (8.5-10.1) mg/dL Deuce Results Last 24 Hours: Microbiology 05/11/20 12:18 Aerobic Blood Culture - Preliminary Blood - Venous - Iv Start NO GROWTH AFTER 4 DAYS Anaerobic Blood Culture - Preliminary NO GROWTH AFTER 4 DAYS 05/11/20 11:11 Aerobic Blood Culture - Preliminary Blood - Arm, Left NO GROWTH AFTER 4 DAYS Anaerobic Blood Culture - Preliminary NO GROWTH AFTER 4 DAYS 05/13/20 18:14 Gram Stain - Final Sputum - Expectorated Respiratory Culture - Final YEAST Med Orders - Current: Current Medications Acetaminophen (Tylenol) 650 mg PO Q4H PRN PRN Reason: Pain (Mild 1-3)/fever Last Admin: 05/14/20 17:48 Dose: 650 mg Documented by: Albuterol (Proventil Neb Soln) 2.5 mg NEB Q4H PRN PRN Reason: Shortness Of Breath/wheezing Last Admin: 05/13/20 04:18 Dose: 2.5 mg Documented by: Albuterol/Ipratropium (Duoneb 3.0-0.5 Mg/3 Ml) 3 ml NEB QIDRT [facility] Last Admin: 05/15/20 10:51 Dose: 3 ml Documented by: Amiodarone HCl (Cordarone) 200 mg PO BID [facility] Last Admin: 05/15/20 09:58 Dose: 200 mg Documented by: Benzonatate (Tessalon Perles) 100 mg PO TID PRN PRN Reason: Cough Cyclobenzaprine HCl (Flexeril) 10 mg PO TID PRN PRN Reason: Muscle Spasm Last Admin: 05/14/20 19:58 Dose: 10 mg Documented by: Doxycycline Hyclate (Vibramycin) 100 mg PO BID [facility] Last Admin: 05/15/20 10:31 Dose: 100 mg Documented by: Guaifenesin/Dextromethorphan (Robitussin Dm) 10 ml PO Q4H PRN PRN Reason: Cough Ceftriaxone Sodium 1 gm/ (Sodium Chloride) 50 mls @ 100 mls/hr IV Q24H [facility] Last Admin: 05/15/20 11:34 Dose: 100 mls/hr Documented by: Ibuprofen (Motrin) 800 mg PO Q8H PRN PRN Reason: Fever Last Admin: 05/12/20 19:37 Dose: 800 mg Documented by: Lactobacillus Rhamnosus (Culturelle) 1 cap PO BID [facility] Last Admin: 05/15/20 09:58 Dose: 1 cap Documented by: Lorazepam (Ativan) 0.5 mg IVPUSH Q4H PRN PRN Reason: Nausea/Vomiting Last Admin: 05/13/20 20:21 Dose: 0.5 mg Documented by: Magnesium Hydroxide (Milk Of Magnesia) 30 ml PO Q12H PRN PRN Reason: Constipation Melatonin (Melatonin) 9 mg PO BEDTIME PRN PRN Reason: Sleep Last Admin: 05/12/20 20:34 Dose: 9 mg Documented by: Nicotine (Habitrol) 21 mg TRDERM DAILY [facility] Last Admin: 05/15/20 09:58 Dose: 21 mg Documented by: Nystatin (Mycostatin) 5 ml PO QID [facility] Last Admin: 05/15/20 10:31 Dose: 5 ml Documented by: Ondansetron HCl (Zofran) 4 mg IV Q6H PRN PRN Reason: Nausea/Vomiting Ondansetron HCl (Zofran Odt) 8 mg PO Q4H PRN PRN Reason: Nausea/Vomiting Last Admin: 05/15/20 13:30 Dose: 8 mg Documented by: Oxycodone HCl (Oxycodone) 10 mg PO Q4H PRN PRN Reason: Pain Last Admin: 05/15/20 13:31 Dose: 10 mg Documented by: Pantoprazole Sodium (Protonix) 40 mg PO ACBREAKFAST [facility] Last Admin: 05/15/20 07:57 Dose: 40 mg Documented by: Polyethylene Glycol (Miralax) 17 gm PO DAILY [facility] Last Admin: 05/15/20 09:57 Dose: 17 gm Documented by: Prochlorperazine Maleate (Compazine) 10 mg PO Q6H PRN PRN Reason: Nausea Senna/Docusate Sodium (Senna Plus) 1 tab PO BID PRN PRN Reason: Constipation Tamsulosin HCl (Flomax) 0.4 mg PO DAILY [facility] Last Admin: 05/15/20 09:58 Dose: 0.4 mg Documented by: Trazodone HCl (Trazodone) 50 mg PO BEDTIME [facility] Last Admin: 05/14/20 20:00 Dose: 50 mg Documented by: Discontinued Medications Azithromycin (Zithromax) 500 mg PO DAILY [facility] Last Admin: 05/15/20 10:57 Dose: Not Given Documented by: Digoxin (Lanoxin) 125 mcg IVPUSH ONETIME ONE Stop: 05/13/20 09:38 Last Admin: 05/13/20 09:54 Dose: 125 mcg Documented by: Digoxin (Lanoxin) Confirm Administered Dose 500 mcg .ROUTE .STK-MED ONE Stop: 05/13/20 09:59 Last Admin: 05/13/20 10:07 Dose: Not Given Documented by: Diltiazem HCl (Diltiazem) 10 mg IVPUSH ONETIME ONE Stop: 05/13/20 08:56 Last Admin: 05/13/20 09:06 Dose: 10 mg Documented by: Sodium Chloride (Normal Saline) 1,000 mls @ 150 [facility]ls[facility] Last Admin: 05/11/20 12:20 Dose: 150 mls/hr Documented by: Ceftriaxone Sodium 1 gm/ (Sodium Chloride) 50 mls @ 100 mls/hr IV ONETIME ONE Stop: 05/11/20 12:40 Last Admin: 05/11/20 12:27 Dose: 100 mls/hr Documented by: Doxycycline Hyclate 100 mg/ (Sodium Chloride) 100 mls @ 100 mls/hr IV ONETIME ONE Stop: 05/11/20 14:29 Last Admin: 05/11/20 13:36 Dose: 100 mls/hr Documented by: Sodium Chloride (Normal Saline) 1,000 mls @ 125 mls[facility] Last Admin: 05/12/20 07:43 Dose: 125 mls/hr Documented by: Doxycycline Hyclate 100 mg/ (Sodium Chloride) 100 mls @ 100 mls/hr IV Q12H [facility] Last Admin: 05/13/20 01:16 Dose: 100 mls/hr Documented by: Sodium Chloride (Normal Saline) 1,000 mls @ 500 mls/hr IV ASDIRECTED [facility] Last Admin: 05/11/20 22:05 Dose: 500 mls/hr Documented by: Sodium Chloride (Normal Saline) 500 mls @ 999 mls/hr IV .BOLUS ONE Stop: 05/12/20 21:30 Last Admin: 05/12/20 21:14 Dose: 999 mls/hr Documented by: Sodium Chloride (Normal Saline) 1,000 mls @ 125 mls/hr IV ASDIRECTED [facility] Last Admin: 05/13/20 08:25 Dose: 125 mls/hr Documented by: Diltiazem HCl 100 mg/ Sodium (Chloride) 100 mls @ 5 mls/hr IV TITRATE [facility]; Protocol Last Titration: 05/13/20 10:50 Dose: 0 mg/hr, 0 mls/hr Documented by: Sodium Chloride (Normal Saline) 1,000 mls @ 50 mls/hr IV ASDIRECTED [facility] Last Infusion: 05/14/20 10:44 Dose: 25 mls/hr Documented by: Magnesium Sulfate 2 gm/ Premix 50 mls @ 25 mls/hr IV Q6H [facility] Stop: 05/14/20 11:59 Last Admin: 05/14/20 09:30 Dose: 25 mls/hr Documented by: Amiodarone HCl 450 mg/ (Dextrose/Water) 250 mls @ 33.333 mls/hr IV [facility]ED [facility]; Protocol Stop: 05/14/20 10:00 Last Admin: 05/13/20 19:52 Dose: 0.5 mg/min, 16.667 mls/hr Documented by: Amiodarone HCl/Dextrose 150 mg (/ Premix) 100 mls @ 400 mls/hr IV NOW ONE Stop: 05/13/20 10:42 Last Admin: 05/13/20 10:47 Dose: 400 mls/hr Documented by: Sodium Chloride (Normal Saline) 1,000 mls @ 25 mls/hr IV ASDIRECTED [facility] Amiodarone HCl/Dextrose 150 mg (/ Premix) 100 mls @ 400 mls/hr IV NOW ONE Stop: 05/15/20 00:29 Last Admin: 05/15/20 00:41 Dose: 400 mls/hr Documented by: Ketorolac Tromethamine (Toradol) 30 mg IVPUSH ONETIME ONE Stop: 05/11/20 21:39 Last Admin: 05/11/20 22:06 Dose: 30 mg Documented by: Nicotine (Habitrol) 21 mg TRDERM ONETIME ONE Stop: 05/11/20 12:28 Last Admin: 05/11/20 12:34 Dose: 21 mg Documented by: Ondansetron HCl (Zofran Odt) 4 mg PO Q6H PRN PRN Reason: Nausea able to take PO Last Admin: 05/12/20 19:37 Dose: 4 mg Documented by: Ondansetron HCl (Zofran Odt) 8 mg PO Q6H PRN PRN Reason: Nausea able to take PO Last Admin: 05/14/20 03:13 Dose: 8 mg Documented by: Oxycodone HCl (Oxycodone) 10 mg PO ONETIME ONE Stop: 05/11/20 12:17 Last Admin: 05/11/20 12:28 Dose: 10 mg Documented by: Tamsulosin HCl (Flomax) 0.4 mg PO ONETIME ONE Stop: 05/11/20 17:31 Last Admin: 05/11/20 17:42 Dose: 0.4 mg Documented by: - Exam Quality Assessment: Supplemental Oxygen General: Alert, Oriented, Cooperative, No Acute Distress HEENT: Other (Thrush) Lungs: Normal Respiratory Effort, Crackles (Right lower lung) Cardiovascular: Regular Rate, Regular Rhythm GI/Abdominal Exam: Soft, No Distention Extremities: No Pedal Edema. No: Increased Warmth Skin: Warm, Dry Psy/Mental Status: Alert, Normal Affect Sepsis Event Note - Evaluation Sepsis Screening Result: Sepsis Risk - Focused Exam Vital Signs: Vital Signs Temp Pulse Resp BP Pulse Ox 05/15/20 13:00 37.1 C 90 20 112/63 93 L 05/15/20 10:57 96 20 95/56 L 93 L 05/15/20 10:55 80 05/15/20 09:00 80 20 94/56 L 94 L 05/15/20 07:32 98 05/15/20 07:00 36.9 C 84 17 98/56 L 93 L 05/15/20 06:00 20 98/54 L 95 05/15/20 05:16 25 H 100/52 L 97 05/15/20 04:00 21 H 99/61 91 L 05/15/20 03:00 36.7 C 22 H 103/61 90 L - Problem List & Annotations (1) Right lower lobe pneumonia SNOMED Code(s): 223515897 Code(s): J18.9 - PNEUMONIA, UNSPECIFIED ORGANISM Status: Acute Current Visit: Yes Qualifiers: Pneumonia type: due to unspecified organism Qualified Code(s): J18.9 - Pneumonia, unspecified organism (2) COPD (chronic obstructive pulmonary disease) SNOMED Code(s): 35267794 Code(s): J44.9 - CHRONIC OBSTRUCTIVE PULMONARY DISEASE, UNSPECIFIED Status: Chronic Current Visit: Yes Qualifiers: COPD type: unspecified COPD Qualified Code(s): J44.9 - Chronic obstructive pulmonary disease, unspecified (3) Bladder cancer SNOMED Code(s): 891880937 Code(s): C67.9 - MALIGNANT NEOPLASM OF BLADDER, UNSPECIFIED Status: Chronic Current Visit: No Qualifiers: Bladder location: unspecified site Qualified Code(s): C67.9 - Malignant neoplasm of bladder, unspecified (4) Atrial fibrillation with rapid ventricular response SNOMED Code(s): 504012278318854 Code(s): I48.91 - UNSPECIFIED ATRIAL FIBRILLATION Status: Acute Current Visit: Yes (5) Acute respiratory failure with hypoxia SNOMED Code(s): 86467557, 614289913 Code(s): J96.01 - ACUTE RESPIRATORY FAILURE WITH HYPOXIA Status: Acute Current Visit: Yes - Problem List Review Problem List Initiated/Reviewed/Updated: Yes - My Orders Last 24 Hours: My Active Orders 05/14/20 21:00 Amiodarone [Cordarone] 200 mg PO BID 05/15/20 09:28 RT Acapella [RESPCARE] Routine 05/15/20 10:00 Nystatin [Mycostatin] 5 ml PO QID 05/15/20 10:30 Doxycycline [Vibramycin] 100 mg PO BID 05/16/20 05:00 BASIC METABOLIC PANEL,BMP [CHEM] Timed CBC W/O DIFF,HEMOGRAM [HEME] Timed (1) - Plan Plan:: ASSESSMENT AND PLAN - Right lower lobe pneumonia-currently requiring supplemental oxygen. Clinically looks a little better today but still requiring supplemental oxygen. Chest x- ray today done in follow-up suggest the infiltrate is a little bit more impressive but clinically he seems to be doing better overall. White count is stable at 12,000. His respiratory culture grew out yeast but I think this is related to oral contamination from thrush. -Antibiotic coverage with ceftriaxone and doxycycline -Follow-up cultures -Supplement oxygen as needed -Symptomatic management of cough and fever if present -Nystatin swish and swallow Atrial fibrillation with rapid ventricular response-was in sinus rhythm most of the day yesterday but returned to A. fib last night. Back in sinus rhythm again following an extra dose of amiodarone. -Continue oral amiodarone tonight -Cardiac monitoring -Optimize electrolytes including potassium and magnesium Bladder cancer-followed by the infusion center. Last chemotherapy was 1 week pr ior to admission. -Outpatient follow-up Mild COPD-no evidence for exacerbation at this time. -Nebulizers Tobacco dependence-encourage cessation Maintenance issues - - DVT prophylaxis -SCDs - GI prophylaxis -not indicated - Nutrition -regular Disposition -I would anticipate discharge home after the hospital stay Stalin Melara M.D.
[2020-05-15] MEDS: Acetaminophen 325 MG Tab PO PRN ×2 (14:49→19:27)
[2020-05-15] MEDS: traZODone 50 MG Tab PO SCH (21:45)
[2020-05-15] MEDS: Cyclobenzaprine 10 MG Tab PO PRN (21:46)
[2020-05-15] MEDS: LORazepam 2 MG/ML SDV IVPUSH PRN (21:46)
[2020-05-16] MEDS: Acetaminophen 325 MG Tab PO PRN (02:59)
[2020-05-16] MEDS: oxyCODONE 5 MG Tab PO PRN ×2 (02:59→07:54)
[2020-05-16] MEDS: Ondansetron 4 MG Tab.DIS PO PRN ×2 (02:59→07:54)
[2020-05-16] MEDS: Nystatin Susp 100,000 Unit/ML 5 ML UD Cup PO SCH ×2 (05:52→09:53)
[2020-05-16] MEDS: Albuterol/Ipratropium 3.0-0.5 MG/3 ML Neb Soln NEB SCH ×2 (07:25→10:53)
[2020-05-16] MEDS: Pantoprazole 40 MG Tab.CR PO SCH (07:53)
--- NOTE | 2020-05-16 09:34 | PCM.DCSUM1 ---
Discharge Summary - Hospital Course Brief History: 65-year-old male with history of tobacco dependence, bladder cancer with active chemotherapy treatment who presented with progressive cough and shortness of breath. He was sent through the emergency room from the infusion center and admitted with a right lower lobe pneumonia that was getting worse despite outpatient antibiotics. Diagnosis: Stroke: No - Discharge Data Discharge Date: 05/16/20 Discharge Disposition: Home, Self-Care 01 Condition: Fair - Referral to Home Health Primary Care Physician: Darius Perera MD - Discharge Diagnosis/Problem(s) (1) Right lower lobe pneumonia SNOMED Code(s): 191611138 ICD Code: J18.9 - PNEUMONIA, UNSPECIFIED ORGANISM Status: Acute Qualifiers: Pneumonia type: due to unspecified organism Qualified Code(s): J18.9 - Pneumonia, unspecified organism (2) Acute respiratory failure with hypoxia SNOMED Code(s): 06654412, 670509299 ICD Code: J96.01 - ACUTE RESPIRATORY FAILURE WITH HYPOXIA Status: Acute (3) COPD (chronic obstructive pulmonary disease) SNOMED Code(s): 11385463 ICD Code: J44.9 - CHRONIC OBSTRUCTIVE PULMONARY DISEASE, UNSPECIFIED Status: Chronic Qualifiers: COPD type: unspecified COPD Qualified Code(s): J44.9 - Chronic obstructive pulmonary disease, unspecified (4) Bladder cancer SNOMED Code(s): 268798764 ICD Code: C67.9 - MALIGNANT NEOPLASM OF BLADDER, UNSPECIFIED Status: Chronic Qualifiers: Bladder location: unspecified site Qualified Code(s): C67.9 - Malignant neoplasm of bladder, unspecified (5) Atrial fibrillation with rapid ventricular response SNOMED Code(s): 313994362227318 ICD Code: I48.91 - UNSPECIFIED ATRIAL FIBRILLATION Status: Acute (6) Pulmonary fibrosis SNOMED Code(s): 02235073 ICD Code: J84.10 - PULMONARY FIBROSIS, UNSPECIFIED Status: Chronic - Patient Summary/Data Hospital Course: Reji was sent to the hospital for evaluation after he went to the infusion center with cough and progressive shortness of breath. Work-up in the emergency room revealed a right lower lung pneumonia. He was not hypoxic but he was getting worse despite outpatient antibiotics so he was admitted to the hospital for further management. Cultures were obtained. He was started on ceftriaxone and doxycycline. Over the first couple of days we did see a little bit of improvement. Unfortunately a couple of days then he went into a rapid atrial fibrillation and also became hypoxic. He was transferred to the intensive care unit. We did start him initially on diltiazem but he became too hypotensive to continue. Digoxin was tried without any benefit. He was then transitioned to amiodarone. After he received his load and part of his 24-hour infusion he converted to a sinus rhythm. He completed his 24-hour infusion and was t ransitioned to oral amiodarone. At this point all of his cultures were negative and his white count seem to be slowly trending down. Symptomatically he was feeling a little bit better but remained hypoxic. He did have one episode of rapid A. fib the night after he was transitioned to oral amiodarone and received a second 150 mg loading dose and has been in a sinus rhythm since that time. Regarding the pneumonia, we have stalled out with only a small amount of supplemental oxygen. His white count has slowly been improving but has not quite normalized. 1 respiratory culture did grow out yeast but I think this is related to the thrush in his mouth rather than an actual pathogen in the lungs. He has not had any fevers since the first 48 hours of admission. Clinically he is feeling better. His cough has been productive. The strength is improving and his appetite is improving. He has been up and walking around. He is interested in going home at this point since that seems like this will be a little bit longer recovery. His vital signs have all been stable. He is safe on his feet. I think he is safe for discharge but he will require supplemental oxygen at least for a short while. He will be going home with a combination of doxycycline and cefdinir. He is on 2 L of supplemental oxygen but hopefully this can be weaned down over the next few days or maybe a couple of weeks. He is going to be on amiodarone for a total of 2 weeks and I think he can stop at that point since the pneumonia should have resolved and his atrial fibrillation should be behind him since it was likely related to the pneumonia. He will have early follow-up with his primary care. On the day of discharge she was noted to have an oxygen saturation of 84% on room air. I think he would benefit from supplemental oxygen at home. He is active and would benefit from portable oxygen. His chest x-ray did show some probable underlying pulmonary fibrosis so this may become a long-term issue but hopefully this will just be short-term oxygen requirement. With the supplemental oxygen his saturations improved to the mid to upper 90s. - Patient Instructions Diet: Regular Diet as Tolerated Activity: As Tolerated Showering/Bathing: May Shower Notify Provider of: Fever, Increased Pain Other/Special Instructions: 1. You were in the hospital for management of a right lower lung pneumonia. This was complicated by hypoxic respiratory failure requiring oxygen supplementation. We did not determine a causative bacteria. Your condition seems to be getting better albeit slowly with the current antibiotic regimen. I do recommend ongoing antibiotic therapy with doxycycline and cefdinir. You should take both of these medications twice daily with food. Your first dose outside of the hospital will be due tonight. We also noted that you developed thrush (yeast infection in your mouth and throat). I recommend that you use nystatin swish and swallow 5 mL 4 times daily for the next 4 days. 2. During the hospital stay you had a rapid heart rate with an abnormal rhythm called atrial fibrillation. This rhythm has resolved and you are back in a normal sinus rhythm utilizing a medication called amiodarone. Please take amiodarone 200 mg twice daily for 12-1/2 days. Your first dose outside of the hospital will be due tonight. 3. The clinic will contact you tomorrow to schedule an appointment with Dr. Perera later this week. 4. Because of the pne umonia and the resulting inflammation you are currently requiring supplemental oxygen to improve your oxygenation. We have coordinated home oxygen through [facility]. They will be meeting you at home to set up home oxygen and portable oxygen. I would anticipate that you will require this for only a short while such as several days to maybe a couple of weeks. 5. Your next appointment at the Infusion Center is 05/25 at 1200 - Discharge Plan *PRESCRIPTION DRUG MONITORING PROGRAM REVIEWED*: Not Applicable *COPY OF PRESCRIPTION DRUG MONITORING REPORT IN PATIENT KAILEE: Not Applicable Prescriptions/Med Rec: Cefdinir 300 mg PO BID #9 capsule Amiodarone [Cordarone] 200 mg PO BID #25 tablet Nystatin 500,000 unit PO QID #80 ml Doxycycline [Vibramycin] 100 mg PO BID #9 cap Home Medications: Home Meds oxyCODONE 10 mg PO Q4H PRN 05/27/14 [History] traZODone HCl [Trazodone HCl] 50 mg PO BEDTIME 05/27/14 [History] Ondansetron [Zofran Odt] 8 mg PO ASDIRECTED 02/19/20 [History] Cyclobenzaprine [Flexeril] 10 mg PO TID 03/10/20 [History] Pantoprazole [ProTONIX] 40 mg PO DAILY 03/11/20 [History] Prochlorperazine Maleate [Compazine] 10 mg PO Q6HR PRN 03/11/20 [History] Albuterol Sulfate [Albuterol Sulfate Hfa] 8.5 gm IH Q4HR PRN 05/11/20 [History] Tamsulosin HCl 0.4 mg PO DAILY 05/11/20 [History] dexAMETHasone [Dexamethasone] 8 mg PO ASDIRECTED 05/11/20 [History] Amiodarone [Cordarone] 200 mg PO BID #25 tablet 05/16/20 [Rx] Cefdinir 300 mg PO BID #9 capsule 05/16/20 [Rx] Doxycycline [Vibramycin] 100 mg PO BID #9 cap 05/16/20 [Rx] Nystatin 500,000 unit PO QID #80 ml 05/16/20 [Rx] Oxygen Therapy Mode: Nasal Cannula Oxygen Flow Rate (L/min): 2 Patient Handouts: Cefdinir capsules, Doxycycline tablets or capsules, Community-Acquired Pneumonia, Adult Referrals: Darius Perera MD [Primary Care Provider] - (3-5 days - f/u hospital stay for pneumonia. You will recieve a phone call for your appointment date and time. ) - Discharge Summary/Plan Comment DC Time >30 min.: Yes (50-home O2 and counseling about pneumonia) - Patient Data Vitals - Most Recent: Last Vital Signs Temp 37.1 C 05/16/20 09:00 Pulse 90 05/16/20 07:43 Resp 20 05/16/20 09:00 BP 101/60 05/16/20 09:00 Pulse Ox 93 L 05/16/20 09:00 Weight - Most Recent: 67.132 kg I&O - Last 24 hours: Intake & Output 05/15/20 05/16/20 05/16/20 22:59 06:59 14:59 Intake Total 480 240 Output Total 200 1020 Balance 280 -780 Lab Results - Last 24 hrs: Laboratory Results - last 24 hr 05/16/20 05/16/20 Range/Units 05:52 05:52 WBC 12.0 H (4.5-11.0) K/uL RBC 3.33 L (4.30-5.90) M/uL Hgb 8.8 L (12.0-15.0) g/dL Hct 27.6 L (40.0-54.0) % MCV 83 (80-98) fL MCH 26 L (27-31) pg MCHC 32 (32-36) % Plt Count 290 (150-400) K/uL Sodium 135 L (140-148) mmol/L Potassium 4.6 (3.6-5.2) mmol/L Chloride 100 (100-108) mmol/L Carbon Dioxide 28 (21-32) mmol/L Anion Gap 11.6 (5.0-14.0) mmol/L BUN 10 (7-18) mg/dL Creatinine 0.8 (0.8-1.3) mg/dL Est Cr Clr Drug Dosing 85.08 mL/min Estimated GFR (MDRD) > 60 (>60) Glucose 95 (74-106) mg/dL Calcium 8.5 (8.5-10.1) mg/dL HETAL Results - Last 24 hrs: Microbiology 05/11/20 12:18 Aerobic Blood Culture - Preliminary Blood - Venous - Iv Start NO GROWTH AFTER 4 DAYS Anaerobic Blood Culture - Preliminary NO GROWTH AFTER 4 DAYS 05/11/20 11:11 Aerobic Blood Culture - Preliminary Blood - Arm, Left NO GROWTH AFTER 4 DAYS Anaerobic Blood Culture - Preliminary NO GROWTH AFTER 4 DAYS 05/13/20 18:14 Gram Stain - Final Sputum - Expectorated Respiratory Culture - Final YEAST Med Orders - Current: Current Medications Acetaminophen (Tylenol) 650 mg PO Q4H PRN PRN Reason: Pain (Mild 1-3)/fever Last Admin: 05/16/20 02:59 Dose: 650 mg Documented by: Albuterol (Proventil Neb Soln) 2.5 mg NEB Q4H PRN PRN Reason: Shortness Of Breath/wheezing Last Admin: 05/13/20 04:18 Dose: 2.5 mg Documented by: Albuterol/Ipratropium (Duoneb 3.0-0.5 Mg/3 Ml) 3 ml NEB QIDRT [facility] Last Admin: 05/16/20 07:25 Dose: 3 ml Documented by: Amiodarone HCl (Cordarone) 200 mg PO BID [facility] Last Admin: 05/15/20 21:44 Dose: 200 mg Documented by: Benzonatate (Tessalon Perles) 100 mg PO TID PRN PRN Reason: Cough Cyclobenzaprine HCl (Flexeril) 10 mg PO TID PRN PRN Reason: Muscle Spasm Last Admin: 05/15/20 21:46 Dose: 10 mg Documented by: Doxycycline Hyclate (Vibramycin) 100 mg PO BID [facility] Last Admin: 05/15/20 21:44 Dose: 100 mg Documented by: Guaifenesin/Dextromethorphan (Robitussin Dm) 10 ml PO Q4H PRN PRN Reason: Cough Ceftriaxone Sodium 1 gm/ (Sodium Chloride) 50 mls @ 100 mls/hr IV Q24H [facility] Last Admin: 05/15/20 11:34 Dose: 100 mls/hr Documented by: Ibuprofen (Motrin) 800 mg PO Q8H PRN PRN Reason: Fever Last Admin: 05/12/20 19:37 Dose: 800 mg Documented by: Lactobacillus Rhamnosus (Culturelle) 1 cap PO BID [facility] Last Admin: 05/15/20 21:44 Dose: 1 cap Documented by: Lorazepam (Ativan) 0.5 mg IVPUSH Q4H PRN PRN Reason: Nausea/Vomiting Last Admin: 05/15/20 21:46 Dose: 0.5 mg Documented by: Magnesium Hydroxide (Milk Of Magnesia) 30 ml PO Q12H PRN PRN Reason: Constipation Melatonin (Melatonin) 9 mg PO BEDTIME PRN PRN Reason: Sleep Last Admin: 05/12/20 20:34 Dose: 9 mg Documented by: Nicotine (Habitrol) 21 mg TRDERM DAILY [facility] Last Admin: 05/15/20 09:58 Dose: 21 mg Documented by: Nystatin (Mycostatin) 5 ml PO QID [facility] Last Admin: 05/16/20 05:52 Dose: 5 ml Documented by: Ondansetron HCl (Zofran) 4 mg IV Q6H PRN PRN Reason: Nausea/Vomiting Ondansetron HCl (Zofran Odt) 8 mg PO Q4H PRN PRN Reason: Nausea/Vomiting Last Admin: 05/16/20 07:54 Dose: 8 mg Documented by: Oxycodone HCl (Oxycodone) 10 mg PO Q4H PRN PRN Reason: Pain Last Admin: 05/16/20 07:54 Dose: 10 mg Documented by: Pantoprazole Sodium (Protonix) 40 mg PO ACBREAKFAST [facility] Last Admin: 05/16/20 07:53 Dose: 40 mg Documented by: Polyethylene Glycol (Miralax) 17 gm PO DAILY [facility] Last Admin: 05/15/20 09:57 Dose: 17 gm Documented by: Prochlorperazine Maleate (Compazine) 10 mg PO Q6H PRN PRN Reason: Nausea Senna/Docusate Sodium (Senna Plus) 1 tab PO BID PRN PRN Reason: Constipation Last Admin: 05/15/20 19:27 Dose: 1 tab Documented by: Tamsulosin HCl (Flomax) 0.4 mg PO DAILY [facility] Last Admin: 05/15/20 09:58 Dose: 0.4 mg Documented by: Trazodone HCl (Trazodone) 50 mg PO BEDTIME [facility] Last Admin: 05/15/20 21:45 Dose: 50 mg Documented by: Discontinued Medications Azithromycin (Zithromax) 500 mg PO DAILY [facility] Last Admin: 05/15/20 10:57 Dose: Not Given Documented by: Digoxin (Lanoxin) 125 mcg IVPUSH ONETIME ONE Stop: 05/13/20 09:38 Last Admin: 05/13/20 09:54 Dose: 125 mcg Documented by: Digoxin (Lanoxin) Confirm Administered Dose 500 mcg .ROUTE .STK-MED ONE Stop: 05/13/20 09:59 Last Admin: 05/13/20 10:07 Dose: Not Given Documented by: Diltiazem HCl (Diltiazem) 10 mg IVPUSH ONETIME ONE Stop: 05/13/20 08:56 Last Admin: 05/13/20 09:06 Dose: 10 mg Documented by: Sodium Chloride (Normal Saline) 1,000 mls @ 150 mls/hr IV ASDIRECTED [facility] Last Admin: 05/11/20 12:20 Dose: 150 mls/hr Documented by: Ceftriaxone Sodium 1 gm/ (Sodium Chloride) 50 mls @ 100 mls/hr IV ONETIME ONE Stop: 05/11/20 12:40 Last Admin: 05/11/20 12:27 Dose: 100 mls/hr Documented by: Doxycycline Hyclate 100 mg/ (Sodium Chloride) 100 mls @ 100 mls/hr IV ONETIME ONE Stop: 05/11/20 14:29 Last Admin: 05/11/20 13:36 Dose: 100 mls/hr Documented by: Sodium Chloride (Normal Saline) 1,000 mls @ 125 mls/hr IV ASDIRECTED [facility] Last Admin: 05/12/20 07:43 Dose: 125 mls/hr Documented by: Doxycycline Hyclate 100 mg/ (Sodium Chloride) 100 mls @ 100 mls/hr IV Q12H [facility] Last Admin: 05/13/20 01:16 Dose: 100 mls/hr Documented by: Sodium Chloride (Normal Saline) 1,000 mls @ 500 mls/hr IV ASDIRECTED [facility] Last Admin: 05/11/20 22:05 Dose: 500 mls/hr Documented by: Sodium Chloride (Normal Saline) 500 mls @ 999 mls/hr IV .BOLUS ONE Stop: 05/12/20 21:30 Last Admin: 05/12/20 21:14 Dose: 999 mls/hr Documented by: Sodium Chloride (Normal Saline) 1,000 mls @ 125 mls/hr IV ASDIRECTED [facility] Last Admin: 05/13/20 08:25 Dose: 125 mls/hr Documented by: Diltiazem HCl 100 mg/ Sodium (Chloride) 100 mls @ 5 mls/hr IV TITRATE [facility]; Protocol Last Titration: 05/13/20 10:50 Dose: 0 mg/hr, 0 mls/hr Documented by: Sodium Chloride (Normal Saline) 1,000 mls @ 50 mls/hr IV ASDIRECTED [facility] Last Infusion: 05/14/20 10:44 Dose: 25 mls/hr Documented by: Magnesium Sulfate 2 gm/ Premix 50 mls @ 25 mls/hr IV Q6H [facility] Stop: 05/14/20 11:59 Last Admin: 05/14/20 09:30 Dose: 25 mls/hr Documented by: Amiodarone HCl 450 mg/ (Dextrose/Water) 250 mls @ 33.333 mls/hr IV ASDIRECTED [facility]; Protocol Stop: 05/14/20 10:00 Last Admin: 05/13/20 19:52 Dose: 0.5 mg/min, 16.667 mls/hr Documented by: Amiodarone HCl/Dextrose 150 mg (/ Premix) 100 mls @ 400 mls/hr IV NOW ONE Stop: 05/13/20 10:42 Last Admin: 05/13/20 10:47 Dose: 400 mls/hr Documented by: Sodium Chloride (Normal Saline) 1,000 mls @ 25 mls/hr IV ASDIRECTED [facility] Amiodarone HCl/Dextrose 150 mg (/ Premix) 100 mls @ 400 mls/hr IV NOW ONE Stop: 05/15/20 00:29 Last Admin: 05/15/20 00:41 Dose: 400 mls/hr Documented by: Ketorolac Tromethamine (Toradol) 30 mg IVPUSH ONETIME ONE Stop: 05/11/20 21:39 Last Admin: 05/11/20 22:06 Dose: 30 mg Documented by: Nicotine (Habitrol) 21 mg TRDERM ONETIME ONE Stop: 05/11/20 12:28 Last Admin: 05/11/20 12:34 Dose: 21 mg Documented by: Ondansetron HCl (Zofran Odt) 4 mg PO Q6H PRN PRN Reason: Nausea able to take PO Last Admin: 05/12/20 19:37 Dose: 4 mg Documented by: Ondansetron HCl (Zofran Odt) 8 mg PO Q6H PRN PRN Reason: Nausea able to take PO Last Admin: 05/14/20 03:13 Dose: 8 mg Documented by: Oxycodone HCl (Oxycodone) 10 mg PO ONETIME ONE Stop: 05/11/20 12:17 Last Admin: 05/11/20 12:28 Dose: 10 mg Documented by: Tamsulosin HCl (Flomax) 0.4 mg PO ONETIME ONE Stop: 05/11/20 17:31 Last Admin: 05/11/20 17:42 Dose: 0.4 mg Documented by: - Exam Quality Assessment: Reports: Supplemental Oxygen General: Reports: Alert, Oriented, Cooperative, No Acute Distress Lungs: Reports: Crackles (Right lower lung) Cardiovascular: Reports: Regular Rate, Regular Rhythm
[2020-05-16] MEDS: Nicotine 21 MG/24 Hr Patch TRDERM SCH (09:52)
[2020-05-16] MEDS: Polyethylene Glycol 3350 Powder 17 GM Packet PO SCH (09:52)
[2020-05-16] MEDS: Lactobacillus Rhamnosus GG (Probiotic) Cap PO SCH (09:53)
[2020-05-16] MEDS: Tamsulosin 0.4 MG Cap.ER PO SCH (09:53)
[2020-05-16] MEDS: Doxycycline 100 MG Cap PO SCH (09:53)
[2020-05-16] MEDS: Prochlorperazine 10 MG Tab PO PRN ×2 (09:53→09:57)
[2020-05-16] MEDS: Amiodarone 200 MG Tab PO SCH (09:54)
[2020-05-16] MEDS: cefTRIAXone 1 GM in Sodium Chloride 0.9% 50 ML IV SCH (12:14)
== END 2020-05-16 13:00 | disposition home or self-care (01) | DRG 871 ==
LOC: JP.ED 10:54 → JP.MS 13:21 → JP.ICU 05-13 09:00
PROVIDERS: ADMIT Internal Medicine; ATTEND Internal Medicine
DX: A41.9 Sepsis, unspecified organism (principal); J18.9 Pneumonia, unspecified organism; J96.01 Acute respiratory failure with hypoxia; H54.7 Unspecified visual loss; J44.9 Chronic obstructive pulmonary disease, unspecified; C67.8 Malignant neoplasm of overlapping sites of bladder; J44.1 Chronic obstructive pulmonary disease with (acute) exacerbation; J44.0 Chronic obstructive pulmonary disease with (acute) lower respiratory infection; B37.0 Candidal stomatitis; Z98.890 Other specified postprocedural states; Z20.828 Contact with and (suspected) exposure to other viral communicable diseases; C67.9 Malignant neoplasm of bladder, unspecified; I48.91 Unspecified atrial fibrillation; J84.10 Pulmonary fibrosis, unspecified; M54.9 Dorsalgia, unspecified; G89.29 Other chronic pain; F17.200 Nicotine dependence, unspecified, uncomplicated; E86.0 Dehydration; Z79.899 Other long term (current) drug therapy; Z98.49 Cataract extraction status, unspecified eye; Z71.6 Tobacco abuse counseling
CPT/HCPCS: 36415; 71046 ×2; 80048; 85025; 87040 ×2; 87070; 87205; 96365; 99285; A9270 ×2; J0696; J7030; J7050; U0002; 81001; 83735; 85027; 87077; 93005; 93010; 94640; 94667; 94668; 99222-AI; 99231; 99232; 99239; 99284; J0282; J1160; J1885; J2060; J3475; J3490; J7040; J7060; J7620-GY; Q0164

== ENCOUNTER 2020-08-03 11:39 | Emergency (ER) | payer MEDICARE ==
[2020-08-03] MEDS ORDERED: Diltiazem 25 MG/5 ML SDV IVPUSH ONE (11:49)
[2020-08-03] MEDS ORDERED: Sodium Chloride 0.9% 1,000 ML IV SCH ×2 (12:00→14:00)
--- NOTE | 2020-08-03 12:45 | EDM.PDOC ---
ED HPI GENERAL MEDICAL PROBLEM - General Chief Complaint: Cardiovascular Problem Stated Complaint: FROM CLINIC Time Seen by Provider: 08/03/20 12:00 Source of Information: Reports: Patient, Provider History Limitations: Reports: No Limitations - History of Present Illness INITIAL COMMENTS - FREE TEXT/NARRATIVE: 65-year-old male went into the clinic this morning for weakness and shortness of breath with activity. He was found to be in atrial fibrillation with rapid ventricular response was sent over to the emergency room. He denies palpitations, he has been getting chemotherapy for metastatic urethral carcinoma. Denies nausea or vomiting. Onset: Unknown/Unsure Associated Symptoms: Reports: Malaise, Shortness of Breath - Related Data Allergies Allergy/AdvReac Type Severity Reaction Status Date / Time No Known Allergies Allergy Verified 08/03/20 11:51 Home Meds: Home Meds oxyCODONE 5 mg PO Q4H PRN 05/27/14 [History] traZODone HCl [Trazodone HCl] 50 mg PO BEDTIME 05/27/14 [History] Ondansetron [Zofran Odt] 8 mg PO ASDIRECTED 02/19/20 [History] Cyclobenzaprine [Flexeril] 10 mg PO TID 03/10/20 [History] Pantoprazole [ProTONIX] 40 mg PO DAILY 03/11/20 [History] Prochlorperazine Maleate [Compazine] 10 mg PO Q6HR PRN 03/11/20 [History] Albuterol Sulfate [Albuterol Sulfate Hfa] 8.5 gm IH Q4HR PRN 05/11/20 [History] Tamsulosin HCl 0.4 mg PO DAILY 05/11/20 [History] dexAMETHasone [Dexamethasone] 8 mg PO ASDIRECTED 05/11/20 [History] Nystatin 500,000 unit PO QID #80 ml 05/16/20 [Rx] Ciprofloxacin [Ciprofloxacin HCl] 500 mg PO BID 08/03/20 [History] Fluconazole [Diflucan] 100 mg PO BID 08/03/20 [History] Past Medical History HEENT History: Reports: Cataract, Impaired Vision, Other (See Below) Other HEENT History: contact lense in left eye currently to help heal eye; left eye poked with stick 2 days ago Cardiovascular History: Reports: Afib, Aneurysm Respiratory History: Reports: COPD Gastrointestinal History: Reports: None Genitourinary History: Reports: Other (See Below) Other Genitourinary History: metastatic urothelial carcinoma. malignant neoplasm of overlapping sites of bladder Musculoskeletal History: Reports: Back Pain, Chronic, Neck Pain, Chronic, Other (See Below) Other Musculoskeletal History: L elbow pain, R wrist pain Neurological History: Reports: None Oncologic (Cancer) History: Reports: Bladder - Infectious Disease History Infectious Disease History: Reports: Chicken Pox, Measles, Mumps, Other (See Below) Other Infectious Disease History: polio - Past Surgical History Head Surgeries/Procedures: Reports: None HEENT Surgical History: Reports: Cataract Surgery Respiratory Surgical History: Reports: None GI Surgical History: Reports: Colonoscopy Male Surgical History: Reports: Other (See Below) Other Male Surgeries/Procedures: removed CA brom bladder Neurological Surgical History: Reports: C-Spine Musculoskeletal Surgical History: Reports: Carpal Tunnel, Other (See Below) Other Musculoskeletal Surgeries/Procedures:: neck surgery, left foot. s/o right carpal tunnel release Oncologic Surgical History: Reports: Other (See Below) Other Oncologic Surgeries/Procedures: bladder CA removed Dermatological Surgical History: Reports: None Social & Family History - Family History Family Medical History: No Pertinent Family History - Tobacco Use Tobacco Use Status *Q: Current Every Day Tobacco User Years of Tobacco use: 48 Packs/Tins Daily: 0.2 - Caffeine Use Caffeine Use: Reports: Coffee - Recreational Drug Use Recreational Drug Use: Yes Recreational Drug Type: Reports: Marijuana/Hashish ED ROS GENERAL - Review of Systems Review Of Systems: See Below Constitutional: Reports: Malaise. Denies: Fever, Chills HEENT: Denies: Vision Change Respiratory: Reports: Shortness of Breath (Especially with activity) Cardiovascular: Denies: Chest Pain Endocrine: Reports: Fatigue GI/Abdominal: Denies: Abdominal Pain Skin: Reports: Pallor Neurological: Denies: Headache Psychiatric: Reports: No Symptoms ED EXAM, GENERAL - Physical Exam Exam: See Below Exam Limited By: No Limitations General Appearance: Alert, No Apparent Distress Eye Exam: Bilateral Eye: Normal Inspection Head: Atraumatic Respiratory/Chest: No Respiratory Distress, Lungs Clear, Other (IV exiting the left subclavicular area) Cardiovascular: Tachycardia, Irregularly Irregular GI/Abdominal: Soft, Non-Tender Extremities: Normal Inspection. No: Pedal Edema Neurological: Alert, Oriented, No Motor/Sensory Deficits Psychiatric: Normal Affect, Normal Mood Skin Exam: Warm, Dry #1 Interpretation Rhythm: A-Fib Rate (Beats/Min): 186 ST-T: Normal Course - Vital Signs Last Recorded V/S: Last Vital Signs Temp 97.1 F 08/03/20 11:46 Pulse 134 H 08/03/20 16:40 Resp 18 08/03/20 16:40 BP 96/50 L 08/03/20 16:40 Pulse Ox 92 L 08/03/20 16:40 - Orders/Labs/Meds Orders: Active Orders 24 hr Category Date Time Status EKG 12 Lead [EK] Routine Ther 08/03/20 12:04 Ordered Labs: Laboratory Tests 08/03/20 08/03/20 08/03/20 Range/Units 12:15 12:15 14:11 WBC 5.0 (4.5-11.0) K/uL RBC 3.45 L (4.30-5.90) M/uL Hgb 9.8 L (12.0-15.0) g/dL Hct 31.2 L (40.0-54.0) % MCV 90 (80-98) fL MCH 28 (27-31) pg MCHC 31 L (32-36) % Plt Count 71 L (150-400) K/uL Add Manual Diff Yes Neutrophils % (Manual) 67 H (36-66) % Lymphocytes % (Manual) 22 L (24-44) % Monocytes % (Manual) 11 H (2-6) % Sodium 134 L (140-148) mmol/L Potassium 4.3 (3.6-5.2) mmol/L Chloride 99 L (100-108) mmol/L Carbon Dioxide 21 (21-32) mmol/L Anion Gap 18.3 H (5.0-14.0) mmol/L BUN 20 H D (7-18) mg/dL Creatinine 1.6 H D (0.8-1.3) mg/dL Est Cr Clr Drug Dosing 44.80 mL/min Estimated GFR (MDRD) 43 L (>60) Glucose 109 H (74-106) mg/dL Calcium 8.1 L (8.5-10.1) mg/dL Total Bilirubin 0.4 (0.2-1.0) mg/dL AST 30 (15-37) U/L ALT 31 (12-78) U/L Alkaline Phosphatase 142 H (46-116) U/L Troponin I < 0.017 (0.000-0.056) ng/mL Total Protein 6.1 L (6.4-8.2) g/dL Albumin 2.4 L (3.4-5.0) g/dL Globulin 3.7 H (2.3-3.5) g/dL Albumin/Globulin Ratio 0.7 L (1.2-2.2) SARS CoV-2 RNA Rapid GABBY Negative Meds: Medications Discontinued Medications Generic Name Dose Route Start Last Admin Trade Name Freq PRN Reason Stop Dose Admin Amiodarone HCl 150 mg 08/03/20 13:13 08/03/20 13:22 Cordarone IVPUSH 08/03/20 13:14 150 mg ONETIME ONE Administration Diltiazem HCl 25 mg 08/03/20 11:49 08/03/20 12:01 Diltiazem IVPUSH 08/03/20 11:50 25 mg ONETIME ONE Administration Enoxaparin Sodium 100 mg 08/03/20 14:09 08/03/20 14:31 Lovenox SUBCUT 08/03/20 14:10 100 mg ONETIME ONE Administration Sodium Chloride 1,000 mls @ 500 mls/hr 08/03/20 12:00 08/03/20 12:01 Normal Saline IV 500 mls/hr ASDIRECTED RAFIQ Administration Magnesium Sulfate 2 gm in 50 mls @ 12.5 mls/hr 08/03/20 13:54 08/03/20 14:08 Magnesium Sulfate In Water Premix IV 08/03/20 17:53 12.5 mls/hr ONETIME ONE Administration Sodium Chloride 1,000 mls @ 1,000 mls/hr 08/03/20 14:00 08/03/20 14:09 Normal Saline IV 1,000 mls/hr ASDIRECTED RAFIQ Administration Amiodarone HCl 450 mg/ 250 mls @ 33.333 mls/hr 08/03/20 14:15 08/03/20 15:51 Dextrose/Water IV 1.5 mg/min ASDIRECTED RAFIQ 50 mls/hr Titration Protocol 1 MG/MIN Nicotine 21 mg 08/03/20 14:09 08/03/20 14:26 Habitrol TRDERM 08/03/20 14:10 21 mg ONETIME ONE Administration - Re-Assessments/Exams Free Text/Narrative Re-Assessment/Exam: 08/03/20 13:43 EKG done on arrival to the emergency room revealed atrial fibrillation with a rate up to 190. IV was started and he was given 25 mg of IV Cardizem which slowed his rate into the 160s but dropped his blood pressure into the 70s systolic. Fluids were bolused and patient was monitored over the next hour. Blood pressure rebounded only mildly, after phone consultation with emergency medicine in [place] he was given 150 mg of IV amiodarone over 3 minutes. Rate slowed into the 130s and 140s and blood pressure increased into the 80s systolic. Chest x-ray showed diffuse pulmonary scarring consistent with the CT scan he had 3 weeks ago. I discussed his situation with the hospitalist here at [facility], recommendations were made for transfer for esophageal echocardi ogram and cardioversion. Amiodarone drip and fluid bolus was given in route. 08/03/20 14:14 Patient was also given subcu Lovenox. He smokes 1-1/2 packs of cigarettes daily and was asking for nicotine replacement so a 21 mg patch was applied. Blood pressure continued to slowly improve, normal saline bolus continued. 08/03/20 15:55 Blood pressure normalized with a systolic of 105-120, but rate continued to be rapid between 120 and 140. Prior to transfer the amiodarone was increased to 1.5 mg/min. 08/03/20 17:55 Prior to discharge the clinic called to inform us he had a magnesium of 1.2. 2 g of magnesium was hung and he will receive this while he is being transferred to [place]. Patient was stable on transfer. Departure - Departure Time of Disposition: 17:00 Disposition: DC/Tfer to [place] [id number] Reason for Transfer *Q: Other Clinical Impression: Atrial fibrillation with RVR Hypotension Qualifiers: Hypotension type: hypotension due to drug Qualified Code(s): I95.2 - Hypo tension due to drugs Referrals: PCP,None [Primary Care Provider] - Forms: ED Department Discharge Care Plan Goals: Patient will be transferred to [facility] for cardiac monitoring and evaluation of persistent atrial fibrillation with RVR. Sepsis Event Note (ED) - Evaluation Sepsis Screening Result: No Definite Risk - Focused Exam Vital Signs: Vital Signs Temp Pulse Resp BP Pulse Ox 12/15/20 16:40 134 H 18 96/50 L 92 L 08/03/20 16:08 108 H 23 H 84/45 L 89 L 08/03/20 15:28 119 H 20 110/74 93 L 08/03/20 14:32 128 H 18 96/73 93 L 08/03/20 14:02 126 H 18 101/57 L 95 08/03/20 14:00 139 H 15 106/64 95 08/03/20 13:33 146 H 13 81/51 L 94 L 08/03/20 13:25 161 H 14 80/49 L 94 L 08/03/20 13:10 152 H 21 H 81/41 L 94 L 08/03/20 13:03 151 H 17 75/40 L 95 08/03/20 12:34 153 H 76/46 L 08/03/20 12:33 150 H 16 71/41 L 92 L 08/03/20 12:10 156 H 16 80/49 L 92 L 08/03/20 11:46 97.1 F 191 H 20 110/59 L 95 - My Orders Last 24 Hours: My Active Orders 08/03/20 12:04 EKG 12 Lead [EK] Routine - Assessment/Plan Last 24 Hours: My Active Orders 08/03/20 12:04 EKG 12 Lead [EK] Routine
--- NOTE | 2020-08-03 13:03 | CR ---
CHEST: Portable 08/03/2020 at 1247 CLINICAL HISTORY:Dyspnea COMPARISON:05/15/2020, CT June 2020 FINDINGS: There is patchy density in both infrahilar regions right greater than left. Much of this is chronic and likely due to chronic infection. Appearance is similar to the June CT. There is underlying COPD. Heart size and pulmonary vascularity are normal. There are atherosclerotic changes in the aorta.. There is an infusion port catheter from left subclavian approach. Tip is in the brachiocephalic vein. IMPRESSION: Patchy bilateral lower lobe infiltrates and pleural parenchymal scarring right greater than left. This is similar to June 2020. Large element of this is felt to be due to chronic infection superimposed over COPD.
[2020-08-03] MEDS ORDERED: Amiodarone 150 MG/3 ML SDV IVPUSH ONE (13:13)
[2020-08-03] MEDS ORDERED: Magnesium Sulfate/Water 2 GM/50 ML BAG IV ONE (13:54)
[2020-08-03] MEDS ORDERED: Enoxaparin 100 MG/1 ML Syringe SUBCUT ONE (14:09)
[2020-08-03] MEDS ORDERED: Nicotine 21 MG/24 Hr Patch TRDERM ONE (14:09)
== END 2020-08-03 17:00 | disposition other institution (70) ==
LOC: JP.ED 11:39
DX: I48.91 Unspecified atrial fibrillation (principal); I95.2 Hypotension due to drugs; T46.1X5A Adverse effect of calcium-channel blockers, initial encounter; J44.9 Chronic obstructive pulmonary disease, unspecified; F17.210 Nicotine dependence, cigarettes, uncomplicated; Z79.899 Other long term (current) drug therapy; Z20.828 Contact with and (suspected) exposure to other viral communicable diseases
CPT/HCPCS: 36415; 71045; 80053; 84484; 85025; 93005; 96365; 96366; 96368; 96372; 96375; 96376; 99285; A9270; J0282; J1650; J3475; J3490; J7030; J7060; U0002; 93010